=== PATIENT | female | born 1940 | race Caucasian/White ===

== ENCOUNTER 2017-03-03 13:09 | Observation (INO) | payer MEDICARE ==
[~2017-03-03 13:09] MED LIST: Warfarin 2.5 MG Tab PO SCH
[2017-03-03] MEDS ORDERED: Aspirin 81 MG Tab.Chew PO ONE (13:23)
[2017-03-03] MEDS ORDERED: Nitroglycerin 0.4 MG Tab.SL SL PRN ×2 (13:24→19:57)
--- NOTE | 2017-03-03 13:49 | CR ---
Portable chest Comparison: 14 October 2016. Findings: There is a cardiac pacemaker on the left. The leads are intact. There is stable cardiac en largement. The vascular structures are within normal limits. There are no infiltrates or effusions. Impression: 1. No acute findings.
--- NOTE | 2017-03-03 13:54 | EDM.PDOC ---
ED HPI GENERAL MEDICAL PROBLEM - General Chief Complaint: Chest Pain Stated Complaint: CHEST PAINS VIA [facility] Time Seen by Provider: 03/03/17 13:50 Source of Information: Reports: Patient History Limitations: Reports: No limitations - History of Present Illness INITIAL COMMENTS - FREE TEXT/NARRATIVE: Pt arrived with a history of chest pain which started about 10 am. This was quite severe a one point. She rated it a 7 on arrival. She did not get sweaty or did not vomit. She was not real sob. Onset: sudden Duration: Hour(s): Location: Reports: chest, other (pressure and at times ) Associated Symptoms: Reports: chest pain Chest Pain Score (Numeric/FACES): 5 - Related Data Allergies Allergy/AdvReac Type Severity Reaction Status Date / Time atorvastatin calcium Allergy Swelling Verified 03/03/17 13:24 [From Lipitor] oxycodone Allergy Itching Verified 03/03/17 13:24 duloxetine HCl AdvReac Depression Verified 03/03/17 13:24 [From Cymbalta] hydrocodone AdvReac Hallucinati Verified 03/03/17 13:24 ons lisinopril AdvReac Cough Verified 03/03/17 13:24 Home Meds: Home Meds Aspirin 81 mg PO DAILY 10/29/15 [History] Carbidopa/Levodopa [Carbidopa-Levodopa 25-100] 2 tab PO QID 10/29/15 [History] Carvedilol [Coreg] 12.5 mg PO BID 10/29/15 [History] Citalopram [Citalopram HBr] 20 mg PO DAILY 10/29/15 [History] Levothyroxine 125 mcg PO ACBREAKFAST 10/29/15 [History] Losartan [Cozaar] 25 mg PO DAILY 10/29/15 [History] Nitroglycerin [Nitrostat] 0.4 mg SL ASDIRECTED 10/29/15 [History] OXcarbazepine [Oxcarbazepine] 300 mg PO BID 10/29/15 [History] Omeprazole 20 mg PO DAILY 10/29/15 [History] Simvastatin 40 mg PO BEDTIME 10/29/15 [History] Venlafaxine HCl [Venlafaxine ER] 150 mg PO DAILY 10/29/15 [History] Warfarin [Coumadin] 2.5 mg PO SUTUWETHSA 10/29/15 [History] Warfarin [Coumadin] 5 mg PO MOFR 10/29/15 [History] ARIPiprazole [Abilify] 2 mg PO DAILY 05/18/16 [History] Celecoxib [CeleBREX] 200 mg PO DAILY PRN 05/18/16 [History] LORazepam 0.5 - 1 tab PO BEDTIME PRN 05/18/16 [History] Venlafaxine HCl [Venlafaxine ER] 37.5 mg PO DAILY 05/18/16 [History] Calcium Carbonate/Vitamin D3 [Calcium 500-Vit D3 200 Tablet] 1 tab PO BID [History] Cholecalciferol (Vitamin D3) [Vitamin D3] 1 tab PO DAILY 05/29/16 [History] Ferrous Sulfate 325 mg PO DAILY 05/29/16 [History] Furosemide 20 mg PO DAILY 05/29/16 [History] Potassium Chloride 10 meq PO DAILY 05/29/16 [History] Past Medical History HEENT History: Reports: Impaired vision, Sinusitis Cardiovascular History: Reports: Afib, CAD, Heart Failure, High cholesterol, Hypertension, [place], Pacemaker, SOB on exertion Respiratory History: Reports: Other (see below) Other Respiratory History: "fluid on the lungs" Gastrointestinal History: Reports: GERD [employer]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: 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, Fibroids, Musculoskeletal History: Reports: Osteoarthritis, Osteoporosis Neurological History: Reports: Headaches, chronic, Seizure Psychiatric History: Reports: Anxiety, Depression Endocrine/Metabolic History: Reports: Hypothyroidism, Other (see below) Other Endocrine/Metabolic History: Thyroid disease - Infectious Disease History Infectious Disease History: Reports: Chicken pox, Measles, Mumps - Past Surgical History HEENT Surgical History: Reports: Cataract surgery, Other (see below) Other HEENT Surgeries/Procedures: left ear mastoid surgery, sinus surgery Cardiovascular Surgical History: Reports: Pacer GI Surgical History: Reports: Appendectomy, Cholecystectomy Endocrine Surgical History: Reports: Other (see below) Other Endocrine Surgeries/Procedures: thyroid surgery Musculoskeletal Surgical History: Reports: Knee replacement, Shoulder replacement Social & Family History - Family History Family Medical History: Noncontributory Cardiac: Reports: CAD, Heart failure, [place] - Tobacco Use Smoking Status *Q: Never Smoker Second Hand Smoke Exposure: No - Caffeine Use Caffeine Use: Reports: Coffee - Recreational Drug Use Recreational Drug Use: No ED ROS GENERAL - Review of Systems Review Of Systems: See Below Constitutional: Reports: no symptoms HEENT: Reports: No symptoms Respiratory: Reports: Shortness of Breath Cardiovascular: Reports: Chest pain, Other (history of atrial fib. ) Endocrine: Reports: no symptoms GI/Abdominal: Reports: No symptoms : Reports: no symptoms ED EXAM, GENERAL - Physical Exam Exam: See Below Free Text/Narrative:: Pt arrived after having several hours of left sided chest pain. She had a stress test that was neg except her ejection fraction was only 20 %. She had asa in the ambulance and she was given one nitro and her pain went completely away. Exam Limited By: No limitations General Appearance: alert, anxious, mild distress Ears: normal TMs Nose: normal inspection Throat/Mouth: Normal inspection Head: atraumatic Neck: normal inspection Respiratory/Chest: no respiratory distress Cardiovascular: irregularly irregular, other ( Pt is in atrial fib and has a permanent pacemaker. ) GI/Abdominal: Soft, Non-Tender Rectal (Female) Exam: Deferred Back Exam: normal inspection Extremities: normal inspection Neurological: alert, oriented, normal cognition Psychiatric: normal affect Course - Vital Signs Last Recorded V/S: Last Vital Signs Temp 37.2 C 03/03/17 13:15 Pulse 70 03/03/17 14:15 Resp 15 03/03/17 14:15 BP 135/77 03/03/17 14:15 Pulse Ox 95 03/03/17 14:15 - Orders/Labs/Meds Orders: Active Orders 24 hr Category Date Time Status EKG Documentation Completion [RC] ASDIRECTED Care 03/03/17 13:23 Active UA W/MICROSCOPIC [URIN] Urgent Lab 03/03/17 13:22 Uncollected EKG 12 Lead [EK] Routine Ther 03/03/17 13:23 Ordered Labs: Laboratory Tests 03/03/17 03/03/17 03/03/17 Range/Units 13:24 13:33 13:33 WBC 7.7 (4.5-11.0) K/uL RBC 4.52 (3.30-5.50) M/uL Hgb 13.8 (12.0-15.0) g/dL Hct 41.6 (36.0-48.0) % MCV 92 (80-98) fL MCH 31 (27-31) pg MCHC 33 (32-36) % Plt Count 201 (150-400) K/uL Neut % (Auto) 63 (36-66) % Lymph % (Auto) 23 L (24-44) % [place] % (Auto) 14 H (2-6) % Eos % (Auto) 0 L (2-4) % Baso % (Auto) 0 (0-1) % PT 24.1 H (9.5-12.0) sec INR 2.22 H (0.80-1.20) Sodium (140-148) mmol/L Potassium (3.6-5.2) mmol/L Chloride (100-108) mmol/L Carbon Dioxide (21-32) mmol/L Anion Gap (5.0-14.0) mmol/L BUN (7-18) mg/dL Creatinine (0.6-1.0) mg/dL Est Cr Clr Drug Dosing mL/min Estimated GFR (MDRD) (>60) Glucose (74-106) mg/dL Calcium (8.5-10.1) mg/dL Total Bilirubin (0.2-1.0) mg/dL AST (15-37) U/L ALT (12-78) U/L Alkaline Phosphatase (46-116) U/L Creatine Kinase (26-192) U/L Troponin I < 0.017 (0.000-0.056) ng/mL Total Protein (6.4-8.2) g/dL Albumin (3.4-5.0) g/dL Globulin (2.3-3.5) g/dL Albumin/Globulin Ratio (1.2-2.2) 03/03/17 Range/Units 13:33 WBC (4.5-11.0) K/uL RBC (3.30-5.50) M/uL Hgb (12.0-15.0) g/dL Hct (36.0-48.0) % MCV (80-98) fL MCH (27-31) pg MCHC (32-36) % Plt Count (150-400) K/uL Neut % (Auto) (36-66) % Lymph % (Auto) (24-44) % [place] % (Auto) (2-6) % Eos % (Auto) (2-4) % Baso % (Auto) (0-1) % PT (9.5-12.0) sec INR (0.80-1.20) Sodium 134 L (140-148) mmol/L Potassium 4.4 (3.6-5.2) mmol/L Chloride 98 L (100-108) mmol/L Carbon Dioxide 29 (21-32) mmol/L Anion Gap 11.4 (5.0-14.0) mmol/L BUN 17 D (7-18) mg/dL Creatinine 0.8 (0.6-1.0) mg/dL Est Cr Clr Drug Dosing 57.75 mL/min Estimated GFR (MDRD) > 60 (>60) Glucose 98 (74-106) mg/dL Calcium 8.2 L (8.5-10.1) mg/dL Total Bilirubin 0.7 (0.2-1.0) mg/dL AST 17 (15-37) U/L ALT 9 L (12-78) U/L Alkaline Phosphatase 99 (46-116) U/L Creatine Kinase 39 (26-192) U/L Troponin I (0.000-0.056) ng/mL Total Protein 6.8 (6.4-8.2) g/dL Albumin 3.4 (3.4-5.0) g/dL Globulin 3.4 (2.3-3.5) g/dL Albumin/Globulin Ratio 1.0 L (1.2-2.2) Meds: Medications Discontinued Medications Generic Name Dose Route Start Last Admin Trade Name Freq PRN Reason Stop Dose Admin Aspirin 324 mg 03/03/17 13:23 Aspirin PO 03/03/17 13:24 ONETIME ONE Nitroglycerin 0.4 mg 03/03/17 13:24 03/03/17 13:51 Nitrostat SL 03/03/17 13:35 0.4 mg Q5M PRN Administration Chest Pain - Re-Assessments/Exams Free Text/Narrative Re-Assessment/Exam: 03/03/17 14:51 pt had a normal ekg and she had a unchanged chest xray. She had normal cardiac enzymes. She did get relief with a nitro and became pain free. Departure - Departure Time of Disposition: 14:52 Disposition: Admitted As Inpatient 68 Condition: fair Clinical Impression: Angina at rest, Decreased cardiac ejection fraction Forms: ED Department Discharge Care Plan Goals: admit to Dr bailey - My Orders Last 24 Hours: My Active Orders 03/03/17 13:22 UA W/MICROSCOPIC [URIN] Urgent 03/03/17 13:23 EKG Documentation Completion [RC] ASDIRECTED EKG 12 Lead [EK] Routine - Assessment/Plan Last 24 Hours: My Active Orders 03/03/17 13:22 UA W/MICROSCOPIC [URIN] Urgent 03/03/17 13:23 EKG Documentation Completion [RC] ASDIRECTED EKG 12 Lead [EK] Routine
--- NOTE | 2017-03-03 15:28 | PCM.HP ---
H&P History of Present Illness - General Date of Service: 03/03/17 Admit Problem/Dx: Admission Diagnosis/Problem Admission Diagnosis/Problem Atypical chest pain Source of Information: Patient, Family, Provider History Limitations: Reports: No limitations - History of Present Illness Initial Comments - Free Text/Narative: Kimberley presents to the emergency room today with chest pain. She reports the onset of initially a "poke" like pain right in the center of her chest. This progressed over several minutes to a pressure-like pain which she described as a brick sitting on her chest. This pain started out mild and then progressed to moderately severe over the course of a couple of hours. The pain started while she was at rest. She did not notice a change in the pain when she was up and moving around. She didn't take anything at home to make the pain better. The pain did eventually radiate slightly to the left side of her chest and maybe up into her shoulder. She had some associated nausea but did not feel short of breath or diaphoretic. She has had similar pains in the past though it 's been quite a while since she's had a pain this intense. She has had a mild cough without sputum. No fevers or chills. No recent difficulties with diarrhea or heartburn. No obvious sick contacts. Workup in the emergency room has been reassuring with a normal troponin and stable EKG. She is pain-free at this time. Vital signs have all been stable. She will be admitted for observation. Chest Pain Score (Numeric/FACES): 5 - Related Data Allergies/Adverse Reactions: Allergies Allergy/AdvReac Type Severity Reaction Status Date / Time atorvastatin calcium Allergy Swelling Verified 03/03/17 13:24 [From Lipitor] oxycodone Allergy Itching Verified 03/03/17 13:24 duloxetine HCl AdvReac Depression Verified 03/03/17 13:24 [From Cymbalta] hydrocodone AdvReac Hallucinati Verified 03/03/17 13:24 ons lisinopril AdvReac Cough Verified 03/03/17 13:24 Home Medications: Home Meds Aspirin 81 mg PO DAILY 10/29/15 [History] Carbidopa/Levodopa [Carbidopa-Levodopa 25-100] 2 tab PO QID 10/29/15 [History] Carvedilol [Coreg] 12.5 mg PO BID 10/29/15 [History] Citalopram [Citalopram HBr] 20 mg PO DAILY 10/29/15 [History] Levothyroxine 125 mcg PO ACBREAKFAST 10/29/15 [History] Losartan [Cozaar] 25 mg PO DAILY 10/29/15 [History] Nitroglycerin [Nitrostat] 0.4 mg SL ASDIRECTED 10/29/15 [History] OXcarbazepine [Oxcarbazepine] 300 mg PO BID 10/29/15 [History] Omeprazole 20 mg PO DAILY 10/29/15 [History] Simvastatin 40 mg PO BEDTIME 10/29/15 [History] Venlafaxine HCl [Venlafaxine ER] 150 mg PO DAILY 10/29/15 [History] Warfarin [Coumadin] 2.5 mg PO ASDIRECTED 10/29/15 [History] Warfarin [Coumadin] 5 mg PO MOFR 10/29/15 [History] ARIPiprazole [Abilify] 5 mg PO DAILY 05/18/16 [History] Celecoxib [CeleBREX] 200 mg PO DAILY PRN 05/18/16 [History] LORazepam 0.5 - 1 tab PO BEDTIME PRN 05/18/16 [History] Venlafaxine HCl [Venlafaxine ER] 37.5 mg PO DAILY 05/18/16 [History] Calcium Carbonate/Vitamin D3 [Calcium 500-Vit D3 200 Tablet] 1 tab PO BID [History] Cholecalciferol (Vitamin D3) [Vitamin D3] 1 tab PO DAILY 05/29/16 [History] Ferrous Sulfate 325 mg PO DAILY 05/29/16 [History] Furosemide 20 mg PO DAILY 05/29/16 [History] Potassium Chloride 10 meq PO DAILY 05/29/16 [History] ALPRAZolam [Xanax] 0.25 mg PO ASDIRECTED PRN 03/03/17 [History] Ofloxacin [Floxin 0.3% Otic Soln] 10 drop EARLF ASDIRECTED 03/03/17 [History] Past Medical History HEENT History: Reports: Impaired vision, Sinusitis Cardiovascular History: Reports: Afib, CAD, Heart Failure, High cholesterol, Hypertension, [place], Pacemaker, SOB on exertion Respiratory History: Reports: Other (see below) Other Respiratory History: "fluid on the lungs" Gastrointestinal History: Reports: GERD 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: 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, 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, Musculoskeletal History: Reports: Osteoarthritis, Osteoporosis Neurological History: Reports: Headaches, chronic, Seizure Psychiatric History: Reports: Anxiety, Depression Endocrine/Metabolic History: Reports: Hypothyroidism, Other (see below) Other Endocrine/Metabolic History: Thyroid disease - Infectious Disease History Infectious Disease History: Reports: Chicken pox, Measles, Mumps - Past Surgical History HEENT Surgical History: Reports: Cataract surgery, Other (see below) Other HEENT Surgeries/Procedures: left ear mastoid surgery, sinus surgery Cardiovascular Surgical History: Reports: Pacer GI Surgical History: Reports: Appendectomy, Cholecystectomy Endocrine Surgical History: Reports: Other (see below) Other Endocrine Surgeries/Procedures: thyroid surgery Musculoskeletal Surgical History: Reports: Knee replacement, Shoulder replacement Social & Family History - Family History Family Medical History: Noncontributory Cardiac: Reports: CAD, Heart failure, [place] - Tobacco Use Smoking Status *Q: Never Smoker Second Hand Smoke Exposure: No - Caffeine Use Caffeine Use: Reports: Coffee - Alcohol Use Alcohol Use History: No - Recreational Drug Use Recreational Drug Use: No H&P Review of Systems - Review of Systems: Review Of Systems: See Below Free Text/Narrative: A complete 12 point review of systems was obtained. Pertinent positives and negatives are noted in the history of present illness. All other systems were reviewed and were negative except as noted. Exam - Exam Exam: See Below - Vital Signs Vital Signs: Last Vital Signs Temp 37.2 C 03/03/17 13:15 Pulse 70 03/03/17 14:49 Resp 16 03/03/17 14:49 BP 120/80 03/03/17 14:49 Pulse Ox 95 03/03/17 14:49 Weight: 97.522 kg - Exam Quality Assessment: supplemental oxygen. No: urinary catheter General: alert, oriented, cooperative. No: mild distress HEENT: Mucosa moist & pink. No: Scleral icterus Neck: supple, trachea midline Lungs: Clear to auscultation, Normal respiratory effort Cardiovascular: regular rate, regular rhythm. No: systolic murmur Abdomen: Normal Bowel Sounds, Soft. No: Distention, Tenderness Back Exam: normal inspection, full range of motion Extremities: normal inspection, normal pulses. No: edema Peripheral Pulses: 2+: dorsalis pedis (L), dorsalis pedis (R) Skin: warm, dry, intact Neuro Extensive - Mental Status: alert, oriented x3, nl response to commands Neuro Extensive - Motor, Sensory, Reflexes: CN II-XII intact. No: dysarthria, abnormal motor, tremor Psychiatric: alert, normal affect - Patient Data Lab Results last 24 hrs: Laboratory Results - last 24 hr 03/03/17 03/03/17 03/03/17 Range/Units 13:24 13:33 13:33 WBC 7.7 (4.5-11.0) K/uL RBC 4.52 (3.30-5.50) M/uL Hgb 13.8 (12.0-15.0) g/dL Hct 41.6 (36.0-48.0) % MCV 92 (80-98) fL MCH 31 (27-31) pg MCHC 33 (32-36) % Plt Count 201 (150-400) K/uL Neut % (Auto) 63 (36-66) % Lymph % (Auto) 23 L (24-44) % [place] % (Auto) 14 H (2-6) % Eos % (Auto) 0 L (2-4) % Baso % (Auto) 0 (0-1) % PT 24.1 H (9.5-12.0) sec INR 2.22 H (0.80-1.20) Sodium (140-148) mmol/L Potassium (3.6-5.2) mmol/L Chloride (100-108) mmol/L Carbon Dioxide (21-32) mmol/L Anion Gap (5.0-14.0) mmol/L BUN (7-18) mg/dL Creatinine (0.6-1.0) mg/dL Est Cr Clr Drug Dosing mL/min Estimated GFR (MDRD) (>60) Glucose (74-106) mg/dL Calcium (8.5-10.1) mg/dL Total Bilirubin (0.2-1.0) mg/dL AST (15-37) U/L ALT (12-78) U/L Alkaline Phosphatase (46-116) U/L Creatine Kinase (26-192) U/L Troponin I < 0.017 (0.000-0.056) ng/mL Total Protein (6.4-8.2) g/dL Albumin (3.4-5.0) g/dL Globulin (2.3-3.5) g/dL Albumin/Globulin Ratio (1.2-2.2) Urine Color Urine Appearance Urine pH (4.5-8.0) Ur Specific [place] (1.008-1.030) Urine Protein (NEGATIVE) mg/dL Urine Glucose (UA) (NEGATIVE) mg/dL Urine Ketones (NEGATIVE) mg/dL Urine Occult Blood (NEGATIVE) Urine Nitrite (NEGATIVE) Urine Bilirubin (NEGATIVE) Urine Urobilinogen (NORMAL) mg/dL Ur Leukocyte Esterase (NEGATIVE) Urine RBC (0-5) Urine WBC (0-5) Ur Epithelial Cells Amorphous Sediment Urine Bacteria Urine Mucus 03/03/17 03/03/17 Range/Units 13:33 15:01 WBC (4.5-11.0) K/uL RBC (3.30-5.50) M/uL Hgb (12.0-15.0) g/dL Hct (36.0-48.0) % MCV (80-98) fL MCH (27-31) pg MCHC (32-36) % Plt Count (150-400) K/uL Neut % (Auto) (36-66) % Lymph % (Auto) (24-44) % [place] % (Auto) (2-6) % Eos % (Auto) (2-4) % Baso % (Auto) (0-1) % PT (9.5-12.0) sec INR (0.80-1.20) Sodium 134 L (140-148) mmol/L Potassium 4.4 (3.6-5.2) mmol/L Chloride 98 L (100-108) mmol/L Carbon Dioxide 29 (21-32) mmol/L Anion Gap 11.4 (5.0-14.0) mmol/L BUN 17 D (7-18) mg/dL Creatinine 0.8 (0.6-1.0) mg/dL Est Cr Clr Drug Dosing 57.75 mL/min Estimated GFR (MDRD) > 60 (>60) Glucose 98 (74-106) mg/dL Calcium 8.2 L (8.5-10.1) mg/dL Total Bilirubin 0.7 (0.2-1.0) mg/dL AST 17 (15-37) U/L ALT 9 L (12-78) U/L Alkaline Phosphatase 99 (46-116) U/L Creatine Kinase 39 (26-192) U/L Troponin I (0.000-0.056) ng/mL Total Protein 6.8 (6.4-8.2) g/dL Albumin 3.4 (3.4-5.0) g/dL Globulin 3.4 (2.3-3.5) g/dL Albumin/Globulin Ratio 1.0 L (1.2-2.2) Urine Color Yellow Urine Appearance Clear Urine pH 7.0 (4.5-8.0) Ur Specific [place] 1.015 (1.008-1.030) Urine Protein Negative (NEGATIVE) mg/dL Urine Glucose (UA) Normal (NEGATIVE) mg/dL Urine Ketones Negative (NEGATIVE) mg/dL Urine Occult Blood Negative (NEGATIVE) Urine Nitrite Negative (NEGATIVE) Urine Bilirubin Negative (NEGATIVE) Urine Urobilinogen Normal (NORMAL) mg/dL Ur Leukocyte Esterase Negative (NEGATIVE) Urine RBC 0-5 (0-5) Urine WBC 0-5 (0-5) Ur Epithelial Cells Rare Amorphous Sediment Not seen Urine Bacteria Not seen Urine Mucus Not seen Result Diagrams: 03/03/17 13:33 03/03/17 13:33 Imaging Impressions last 24 hrs: cXR - images personally reviewed - there is no mass, chf, infiltrate. she has a pacer with intact leads EKG INTERPRETATION EKG Date: 03/03/17 Rhythm: other (paced) Rate (beats/min): 70 [place]: LAD-left axis deviation P-wave: variable QRS: wide ST-T: normal QT: normal *Q Meaningful Use (ADM) - VTE *Q VTE Criteria *Q: - Stroke *Q Stroke Criteria *Q: - AMI *Q AMI Criteria *Q: - Problem List (1) Atypical chest pain SNOMED Code(s): 179858439 ICD Code: R07.89 - OTHER CHEST PAIN Status: Acute Current Visit: Yes (2) Ischemic cardiomyopathy SNOMED Code(s): 837147623 ICD Code: I25.5 - ISCHEMIC CARDIOMYOPATHY Status: Chronic Current Visit: No (3) Chronic atrial fibrillation SNOMED Code(s): 113089847 ICD Code: I48.2 - CHRONIC ATRIAL FIBRILLATION Status: Chronic Current Visit: No Problem List Initiated/Reviewed/Updated: Yes Orders Last 24hrs: Active Orders 24 hr Category Date Time Status Patient Status Manage Transfer [TRANSFER] Routine ADT 03/03/17 15:18 Ordered EKG Documentation Completion [RC] ASDIRECTED Care 03/03/17 13:23 Active Resuscitation Status Routine Resus Stat 03/03/17 15:21 Ordered EKG 12 Lead [EK] Routine Ther 03/03/17 13:23 Ordered Assessment/Plan Comment:: Assessment and plan - Atypical chest pain - fairly severe pain but reassuring workup. She is now pain -free. She does have a history of a cardiomyopathy thought to be ischemic but she's never had a coronary angiogram. Significant risk factors for heart disease. Most recent stress test did not show large areas of ischemia but did suggest some distal disease. She does report some shortness of breath with activity over recent months. -Serial troponins -Cardiac monitoring -Continue medical management for coronary artery disease -Stress test in the morning Chronic atrial fibrillation - status post pacemaker placement. Chronically anticoagulated. Currently rate controlled. -Continue rate control and anticoagulation Hypothyroidism, acquired - no symptoms to suggest hyper or hypothyroid state. -Continue supplement Maintenance issues - - DVT prophylaxis - warfarin - GI prophylaxis - PPI - Nutrition - heart healthy diet - [place] catheter - not indicated CODE STATUS - full code Admission justification - This patient will be admitted for inpatient services and is medically appropriate meeting medical necessity for inpatient admission as outlined in my documentation. I reasonably expect the patient will require inpatient services that span a period time over 2 midnights. I reasonably expect this patient to be discharged or transferred within 96 hours [facility] Disposition - anticipate discharge home tomorrow Primary care physician - Dr Doug Santana M.D.
[2017-03-03] MEDS ORDERED: Acetaminophen 325 MG Tab PO PRN (16:31)
[2017-03-03] MEDS ORDERED: Morphine 2 MG/ML Syringe IVPUSH PRN (16:31)
[2017-03-03] MEDS ORDERED: Polyethylene Glycol 3350 Powder 17 GM Packet PO PRN (16:31)
[2017-03-03] MEDS ORDERED: Ondansetron 4 MG/2 ML SDV IV PRN (16:31)
[2017-03-03] MEDS ORDERED: Ondansetron 4 MG Tab.DIS PO PRN (16:31)
[2017-03-03] MEDS ORDERED: ALPRAZolam 0.25 MG Tab PO PRN (19:48)
[2017-03-03] MEDS ORDERED: LORazepam 0.5 MG Tab PO PRN (20:00)
[2017-03-03] MEDS ORDERED: CELECOXIB 200 MG PO PRN (21:00)
[2017-03-03] MEDS: Carvedilol 12.5 MG Tab **OWN MED PO SCH (21:16)
[2017-03-03] MEDS: OXCARBAZEPINE 300 MG PO SCH (21:17)
[2017-03-03] MEDS: Carbidopa/Levodopa 25-100 MG Tab **OWN MED PO SCH (21:17)
[2017-03-04] MEDS: Carbidopa/Levodopa 25-100 MG Tab **OWN MED PO SCH ×2 (06:30→12:50)
[2017-03-04] MEDS ORDERED: Pantoprazole 40 MG Tab.CR PO SCH (07:30)
[2017-03-04] MEDS ORDERED: Levothyroxine 75 MCG Tab PO SCH (07:30)
[2017-03-04] MEDS ORDERED: Levothyroxine 50 MCG Tab PO SCH (07:30)
[2017-03-04] MEDS ORDERED: Venlafaxine 75 MG Cap.ER PO SCH (09:00)
[2017-03-04] MEDS ORDERED: VENLAFAXINE 37.5 MG PO SCH (09:00)
[2017-03-04] MEDS ORDERED: Aspirin 81 MG Tab.Chew **OWN MED PO SCH (09:00)
[2017-03-04] MEDS ORDERED: Losartan 50 MG Tab PO SCH (09:00)
[2017-03-04] MEDS ORDERED: ARIPiprazole 10 MG Tab PO SCH (09:00)
[2017-03-04] MEDS ORDERED: Furosemide 20 MG Tab **OWN MED PO SCH (09:00)
[2017-03-04] MEDS ORDERED: Citalopram 20 MG Tab **OWN MED PO SCH (09:00)
[2017-03-04] MEDS ORDERED: POTASSIUM CHLORIDE 10 MEQ PO SCH (09:00)
[2017-03-04] MEDS ORDERED: Aminophylline 250 MG/10 ML SDV IVPUSH PRN (10:30)
[2017-03-04 11:29] VITALS: BP 156/71
[2017-03-04] MEDS ORDERED: LEVOTHYROXINE 125 MCG PO SCH (12:00)
[2017-03-04] MEDS ORDERED: ARIPIPRAZOLE 5 MG PO SCH (12:00)
[2017-03-04] MEDS: OXCARBAZEPINE 300 MG PO SCH (12:46)
[2017-03-04] MEDS: Carvedilol 12.5 MG Tab **OWN MED PO SCH (12:47)
[2017-03-04] MEDS ORDERED: WARFARIN 2.5 MG PO SCH (13:00)
--- NOTE | 2017-03-04 13:24 | NM ---
Nuclear medicine cardiac Lexiscan stress test. History: Chest pain Technique: The patient was stressed pharmacologically with the administration of Lexiscan. The patie nt received intravenously 10.7 millicuries of technetium 99 Myoview followed by rest imaging and 29 .8 millicuries followed by stress imaging. Comparison: May 2016. Findings: There is a fixed defect involving the lateral distal myocardium adjacent to the cardiac ap ex. The size of the defect is decreased from the prior study. There is partial redistribution at res t. The finding is consistent with a focal area of infarction with mild kristine-infarct ischemia. There is global hypokinesis. The cardiac ejection fraction is within normal limits equal to 63%. Impression: 1. 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 There is mild kristine-in farct ischemia. 2. Hypokinesis with dilatation of the left ventricle. 3. Normal ejection fraction.
--- NOTE | 2017-03-04 14:17 | PCM.DCSUM1 ---
Discharge Summary - Hospital Course Brief History: 76-year-old female with history of coronary artery disease and ischemic cardiomyopathy who presented with atypical chest pain and was admitted for observation - Discharge Data Discharge Date: 03/04/17 Discharge Disposition: Home, Self-Care 01 Condition: Good - Discharge Diagnosis/Problem(s) (1) Atypical chest pain SNOMED Code(s): 090934235 ICD Code: R07.89 - OTHER CHEST PAIN Status: Acute Current Visit: Yes (2) Ischemic cardiomyopathy SNOMED Code(s): 151029774 ICD Code: I25.5 - ISCHEMIC CARDIOMYOPATHY Status: Chronic Current Visit: No (3) Chronic atrial fibrillation SNOMED Code(s): 651682351 ICD Code: I48.2 - CHRONIC ATRIAL FIBRILLATION Status: Chronic Current Visit: No - Patient Summary/Data Hospital Course: Kimberley presented to the emergency room with an episode of atypical chest pain. Workup in the emergency room was reassuring but she was admitted for observation given the severity of her pain. Overnight there were no abnormalities with telemetry and serial troponin levels were normal. She did have one very mild episode of chest tightness shortly after arrival to the intensive care unit but has not had recurrence since that time. The morning after admission she feels well. Her vital signs have all been stable. Her cholesterol numbers are excellent with an LDL less than 70 and HDL of nearly 90. We did complete a Lexiscan stress test and were able to compare this to one from approximately 18 months ago. 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 Comparing this to images from her previous stress test the area of ischemia has actually shrunk in size. Her ejection fraction which previously had been approximately 30% is now greater than 60. She does have mild global hypokinesis noted. We discussed potential management options at this time. We reviewed the potential benefits of adding a long acting nitrate versus more of a cardiac rehabilitation type approach with patient trying to increase the speed the duration of her walking. At this time she feels like she takes no pills in is not interested in another medication at this time. She would like to improve her endurance with the hope that this will keep her from needing an additional medication. If she has persistent difficulties with dyspnea on exertion or recurrent episodes of chest pain we could consider adding a low dose of isosorbide. She will be discharged to home with her . I did review the findings above with her and her son prior to discharge. All of her questions were answered. - Patient Instructions Diet: Heart Healthy Diet Activity: As Tolerated Driving: May Drive Today Showering/Bathing: May Shower Notify Provider of: Fever, Increased Pain, Nausea and/or Vomiting Other/Special Instructions: 1. You were in the hospital for observation and further evaluation after an episode of atypical chest pain. There is no evidence that you had a heart attack. The stress test that we completed the morning after admission did show that you have had a heart attack in the past but the area of damage and has actually shrunk since your stress test 1-1/2 years ago. I would recommend that we manage this medically. You should continue your current medications. I would encourage you to increase your aerobic exercise such as walking with the idea that you will strengthen your heart and improve your endurance. 2. If you have difficulty with persistent shortness of breath during exercise or recurrent episodes of chest pain we could consider adding a medication called isosorbide mononitrate (Imdur). This is a long acting nitrate I can improve the blood flow to your coronary arteries. 3. Please seek medical attention if you develop sudden onset of shortness of breath or have return of your severe chest pain. - Discharge Plan Home Medications: Home Meds Aspirin 81 mg PO DAILY 10/29/15 [History] Carbidopa/Levodopa [Carbidopa-Levodopa 25-100] 2 tab PO QID 10/29/15 [History] Carvedilol [Coreg] 12.5 mg PO BID 10/29/15 [History] Citalopram [Citalopram HBr] 20 mg PO DAILY 10/29/15 [History] Levothyroxine 125 mcg PO ACBREAKFAST 10/29/15 [History] Losartan [Cozaar] 25 mg PO DAILY 10/29/15 [History] Nitroglycerin [Nitrostat] 0.4 mg SL ASDIRECTED 10/29/15 [History] OXcarbazepine [Oxcarbazepine] 300 mg PO BID 10/29/15 [History] Omeprazole 20 mg PO DAILY 10/29/15 [History] Simvastatin 40 mg PO BEDTIME 10/29/15 [History] Venlafaxine HCl [Venlafaxine ER] 150 mg PO DAILY 10/29/15 [History] Warfarin [Coumadin] 2.5 mg PO ASDIRECTED 10/29/15 [History] Warfarin [Coumadin] 5 mg PO MOFR 10/29/15 [History] ARIPiprazole [Abilify] 5 mg PO DAILY 05/18/16 [History] Celecoxib [CeleBREX] 200 mg PO DAILY PRN 05/18/16 [History] LORazepam 0.5 - 1 tab PO BEDTIME PRN 05/18/16 [History] Venlafaxine HCl [Venlafaxine ER] 37.5 mg PO DAILY 05/18/16 [History] Calcium Carbonate/Vitamin D3 [Calcium 500-Vit D3 200 Tablet] 1 tab PO BID [History] Cholecalciferol (Vitamin D3) [Vitamin D3] 1 tab PO DAILY 05/29/16 [History] Ferrous Sulfate 325 mg PO DAILY 05/29/16 [History] Furosemide 20 mg PO DAILY 05/29/16 [History] Potassium Chloride 10 meq PO DAILY 05/29/16 [History] ALPRAZolam [Xanax] 0.25 mg PO ASDIRECTED PRN 03/03/17 [History] Ofloxacin [Floxin 0.3% Otic Soln] 10 drop EARLF ASDIRECTED 03/03/17 [History] Patient Handouts: Nonspecific Chest Pain Referrals: Dimitris Camacho MD [Physician] - (follow up as needed if your symptoms return ) - Discharge Summary/Plan Comment DC Time >30 min.: No (25) - Patient Data Vitals - Most Recent: Last Vital Signs Temp 36.3 C 03/04/17 11:28 Pulse 70 03/04/17 11:28 Resp 18 03/04/17 11:28 BP 156/71 H 03/04/17 11:28 Pulse Ox 97 03/04/17 11:28 Weight - Most Recent: 97.522 kg I&O - Last 24 hours: Intake & Output 03/03/17 03/04/17 03/04/17 22:59 06:59 14:59 Intake Total 240 60 Output Total 150 400 Balance 240 -90 -400 Lab Results - Last 24 hrs: Laboratory Results - last 24 hr 03/03/17 03/04/17 03/04/17 Range/Units 17:55 00:00 05:56 PT 25.1 H (9.5-12.0) sec INR 2.31 H (0.80-1.20) Sodium (140-148) mmol/L Potassium (3.6-5.2) mmol/L Chloride (100-108) mmol/L Carbon Dioxide (21-32) mmol/L Anion Gap (5.0-14.0) mmol/L BUN (7-18) mg/dL Creatinine (0.6-1.0) mg/dL Est Cr Clr Drug Dosing mL/min Estimated GFR (MDRD) (>60) Glucose (74-106) mg/dL Calcium (8.5-10.1) mg/dL Troponin I < 0.017 < 0.017 (0.000-0.056) ng/mL Triglycerides (15-150) mg/dL Cholesterol (0-200) mg/dL LDL Cholesterol Direct (0-100) mg/dL HDL Cholesterol (40-60) mg/dL 03/04/17 Range/Units 05:56 PT (9.5-12.0) sec INR (0.80-1.20) Sodium 135 L (140-148) mmol/L Potassium 4.6 (3.6-5.2) mmol/L Chloride 101 (100-108) mmol/L Carbon Dioxide 29 (21-32) mmol/L Anion Gap 9.6 (5.0-14.0) mmol/L BUN 20 H (7-18) mg/dL Creatinine 0.9 (0.6-1.0) mg/dL Est Cr Clr Drug Dosing 51.62 mL/min Estimated GFR (MDRD) > 60 (>60) Glucose 94 (74-106) mg/dL Calcium 8.1 L (8.5-10.1) mg/dL Troponin I (0.000-0.056) ng/mL Triglycerides 41 (15-150) mg/dL Cholesterol 153 (0-200) mg/dL LDL Cholesterol Direct 63 (0-100) mg/dL HDL Cholesterol 87 H (40-60) mg/dL Med Orders - Current: Current Medications Acetaminophen (Tylenol) 650 mg PO Q4H PRN PRN Reason: Pain (Mild 1-3)/fever Alprazolam (Xanax) 0.25 mg PO ASDIRECTED PRN PRN Reason: Anxiety Aminophylline (Aminophylline) 125 mg IVPUSH ASDIRECTED PRN PRN Reason: Chest Pain Stop: 03/04/17 23:00 Last Admin: 03/04/17 10:54 Dose: 125 mg Aspirin (Aspirin) 81 mg PO DAILY [facility] Carbidopa/Levodopa (Sinemet 25-100 Mg) 2 tab PO QID [facility] Last Admin: 03/04/17 12:50 Dose: 2 tab Carvedilol (Coreg) 12.5 mg PO BID [facility] Last Admin: 03/04/17 12:47 Dose: 12.5 mg Celecoxib (Celebrex) 200 mg PO DAILY PRN PRN Reason: PAIN Last Admin: 03/04/17 12:50 Dose: 200 mg Citalopram Hydrobromide (Celexa) 20 mg PO DAILY [facility] Last Admin: 03/04/17 12:52 Dose: 20 mg Furosemide (Lasix) 20 mg PO DAILY [facility] Lorazepam (Ativan) 0.5 - 1 mg PO BEDTIME PRN PRN Reason: SLEEP Last Admin: 03/03/17 21:18 Dose: 1 mg Losartan Potassium (Cozaar) 0 mg PO DAILY [facility] Morphine Sulfate (Morphine) 2 mg IVPUSH Q2H PRN PRN Reason: Pain (severe 7-10) Simvastatin 40 Mg (Tab Own Med) 0 mg PO BEDTIME [facility] Last Admin: 03/03/17 21:17 Dose: 40 mg Ondansetron HCl (Zofran Odt) 4 mg PO Q6H PRN PRN Reason: Nausea able to take PO Ondansetron HCl (Zofran) 4 mg IV Q6H PRN PRN Reason: Nausea/Vomiting Oxcarbazepine (Trileptal) 300 mg PO BID [facility] Last Admin: 03/04/17 12:46 Dose: 300 mg Aripiprazole 5mg Mg (TabPom) 0 each PO DAILY [facility] Last Admin: 03/04/17 12:51 Dose: 1 each Levothyroxine 125 (Mcg TabPom) 0 each PO ACBREAKFAST [facility] Levothyroxine 125 (Mcg TabPom) 0 each PO ACBREAKFAST [facility] Last Admin: 03/04/17 12:49 Dose: 1 each Omeprazole 20mg (CapsulePom) 0 each PO ACBREAKFAST [facility] Venlafaxine 150 Mg (Cap.ErPom) 0 each PO DAILY [facility] Polyethylene Glycol (Miralax) 17 gm PO DAILY PRN PRN Reason: Constipation Potassium Chloride (Potassium Chloride) 10 meq PO DAILY [facility] Last Admin: 03/04/17 12:46 Dose: 10 meq Venlafaxine HCl (Effexor Xr) 37.5 mg PO DAILY [facility] Last Admin: 03/04/17 12:44 Dose: 37.5 mg Warfarin Sodium (Coumadin) 2.5 mg PO SuTuWeThSa [facility] Discontinued Medications Aripiprazole (Abilify) 5 mg PO DAILY [facility] Aspirin (Aspirin) 324 mg PO ONETIME ONE Stop: 03/03/17 13:24 Losartan Potassium (Cozaar) 25 mg PO DAILY [facility] Nitroglycerin (Nitrostat) 0.4 mg SL Q5M PRN PRN Reason: Chest Pain Stop: 03/03/17 13:35 Last Admin: 03/03/17 13:51 Dose: 0.4 mg Nitroglycerin (Nitrostat) 0.4 mg SL Q5M PRN PRN Reason: Chest Pain Stop: 03/03/17 20:08 Last Admin: 03/03/17 20:00 Dose: 0.4 mg Pantoprazole Sodium (Protonix) 40 mg PO ACBREAKFAST [facility] Levothyroxine 125 (Mcg TabPom) 0 each PO ACBREAKFAST [facility] Regadenoson (Lexiscan) 0.4 mg IVPUSH ONETIME ONE Stop: 03/04/17 10:46 Last Admin: 03/04/17 10:41 Dose: 0.4 mg Venlafaxine HCl (Effexor Xr) 150 mg PO DAILY [facility] Warfarin Sodium (Coumadin) 2.5 mg PO SuTuWeThSa [facility] *Q Meaningful Use (DIS) - VTE *Q VTE Criteria *Q: - Stroke *Q Stroke Criteria *Q: - AMI *Q AMI Criteria *Q:
--- NOTE | 2017-03-05 02:38 | STRESS ---
DATE OF SERVICE: 03/04/2017 PROPOSED PROCEDURE: Lexiscan stress test. INDICATION FOR STRESS TEST: Chest pain. REFERRING PHYSICIAN: Dr. Tato Santana. DESCRIPTION OF PROCEDURE: Kimberley presents to the child care specialist unit from the intensive care unit for a Lexiscan stress test. Preprocedure, her blood pressure is 151/83 and her pulse is 73. Baseline EKG shows a wide-complex paced rhythm with a left axis deviation and atrial fibrillation for an underlying rhythm. Review of the continuous EKG monitoring following injection of the Lexiscan per protocol did not reveal any significant changes in the ST segments or T-waves. Her blood pressure dipped slightly after injection of Lexiscan with the lowest blood pressure being 118/64 at the 7 minute tatyana of recovery. Heart rate remained essentially stable during the stress test. Postprocedure, her EKG is at baseline. Her blood pressure is 123/65 and her pulse is 69. Review of the hydrology technician's notes suggest that she was short of breath starting shortly after injection of Lexiscan and this persisted through the recovery phase. She did receive some oxygen during the 1st 5 minutes of the recovery phase. She also developed a mild headache and some left-sided chest pain during the recovery phase. She was given 125 mg of IV aminophylline 5 minutes into recovery. This caused the symptoms to resolve very quickly. IMPRESSION: Negative EKG portion of the stress test. Patient did report chest pain in the recovery phase and did feel short of breath after Lexiscan injection. The nuclear medicine portion will be interpreted separately for additional clinical correlation. Tato Santana MD /[id number]
[2017-03-05] MEDS ORDERED: LEVOTHYROXINE 125 MCG PO SCH ×2 (07:30)
[2017-03-05] MEDS ORDERED: OMEPRAZOLE 20 MG PO SCH (07:30)
[2017-03-05] MEDS ORDERED: Losartan 50 MG Tab**POM PO SCH (09:00)
[2017-03-05] MEDS ORDERED: VENLAFAXINE 150 MG PO SCH (09:00)
== END 2017-03-04 15:00 | disposition home or self-care (01) ==
LOC: JP.ED 13:09 → JP.ICU 15:18
PROVIDERS: ADMIT Internal Medicine; ATTEND Internal Medicine
DX: I48.2 Chronic atrial fibrillation (principal); I25.10 Atherosclerotic heart disease of native coronary artery without angina pectoris; I25.5 Ischemic cardiomyopathy; I25.2 Old myocardial infarction; I11.0 Hypertensive heart disease with heart failure; I50.9 Heart failure, unspecified; K21.9 Gastro-esophageal reflux disease without esophagitis; M81.0 Age-related osteoporosis without current pathological fracture; E03.9 Hypothyroidism, unspecified; M19.90 Unspecified osteoarthritis, unspecified site; F41.9 Anxiety disorder, unspecified; F32.9 Major depressive disorder, single episode, unspecified; R07.89 Other chest pain; Z79.82 Long term (current) use of aspirin; Z79.01 Long term (current) use of anticoagulants; Z79.899 Other long term (current) drug therapy; E78.00 Pure hypercholesterolemia, unspecified; Z95.0 Presence of cardiac pacemaker; Z98.49 Cataract extraction status, unspecified eye; Z90.49 Acquired absence of other specified parts of digestive tract; Z98.890 Other specified postprocedural states
CPT/HCPCS: 36415; 71010; 78452; 80048; 80053; 80061; 81001; 82550; 84484; 85025; 85610; 93005; 93017; 93018; 96374; 99284; 99285; A9270; A9500; G0378; J2785; 93010; 99217; 99219

== ENCOUNTER 2017-06-09 12:12 | Emergency (ER) | payer MEDICARE | END 2017-06-09 13:19 | disposition left against medical advice (07) | LOC: JP.ED 12:12 | DX: Z53.21 Procedure and treatment not carried out due to patient leaving prior to being seen by health care provider (principal) ==

== ENCOUNTER 2017-09-04 14:07 | Emergency (ER) | payer MEDICARE ==
[2017-09-04] MEDS ORDERED: Aspirin 81 MG Tab.Chew PO ONE (14:15)
[2017-09-04] MEDS ORDERED: LORazepam 1 MG Tab PO ONE (14:15)
[2017-09-04 15:02] VITALS: BP 132/77
[2017-09-04] MEDS ORDERED: Furosemide 40 MG Tab PO ONE (15:24)
--- NOTE | 2017-09-04 15:27 | EDM.PDOC ---
ED HPI GENERAL MEDICAL PROBLEM - General Chief Complaint: Chest Pain Stated Complaint: CHEST PAIN Time Seen by Provider: 09/04/17 15:12 Source of Information: Reports: Patient, Old Records, RN Notes Reviewed History Limitations: Reports: No Limitations - History of Present Illness INITIAL COMMENTS - FREE TEXT/NARRATIVE: 76-year-old female presents emergency department day complaint of chest pain and shortness of breath, she states she's been getting more and more short of breath over the last 3 weeks it is definitely worse with exertion over the last couple of days she's been noticing chest pain predominately in the left upper portion of her chest it will come and go is relieved by rest does not radiate anywhere, she has no associated nausea or vomiting or diaphoresis, does have a known history of congestive heart failure of which she takes for low semi-20 mg once a day she admits that she is intermittent on this medication and will not take it on days that she has appointments or errands to run Anterior Chest Pain Score (Numeric/FACES): 0 - Related Data Allergies Allergy/AdvReac Type Severity Reaction Status Date / Time atorvastatin calcium Allergy Swelling Verified 09/04/17 14:12 [From Lipitor] oxycodone Allergy Itching Verified 09/04/17 14:12 duloxetine HCl AdvReac Depression Verified 09/04/17 14:12 [From Cymbalta] hydrocodone AdvReac Hallucinati Verified 09/04/17 14:12 ons lisinopril AdvReac Cough Verified 09/04/17 14:12 Home Meds: Home Meds Aspirin 81 mg PO DAILY 10/29/15 [History] Carbidopa/Levodopa [Carbidopa-Levodopa 25-100] 2 tab PO QID 10/29/15 [History] Carvedilol [Coreg] 12.5 mg PO BID 10/29/15 [History] Citalopram [Citalopram HBr] 20 mg PO DAILY 10/29/15 [History] Levothyroxine 125 mcg PO ACBREAKFAST 10/29/15 [History] Losartan [Cozaar] 25 mg PO DAILY 10/29/15 [History] Nitroglycerin [Nitrostat] 0.4 mg SL ASDIRECTED 10/29/15 [History] OXcarbazepine [Oxcarbazepine] 300 mg PO BID 10/29/15 [History] Omeprazole 20 mg PO DAILY 10/29/15 [History] Simvastatin 40 mg PO BEDTIME 10/29/15 [History] Venlafaxine HCl [Venlafaxine ER] 150 mg PO DAILY 10/29/15 [History] Warfarin [Coumadin] 2.5 mg PO ASDIRECTED 10/29/15 [History] Warfarin [Coumadin] 5 mg PO MOFR 10/29/15 [History] ARIPiprazole [Abilify] 2 mg PO DAILY 05/18/16 [History] Celecoxib [CeleBREX] 200 mg PO DAILY PRN 05/18/16 [History] LORazepam 0.5 - 1 tab PO BEDTIME PRN 05/18/16 [History] Venlafaxine HCl [Venlafaxine ER] 37.5 mg PO DAILY 05/18/16 [History] Calcium Carbonate/Vitamin D3 [Calcium 500-Vit D3 200 Tablet] 1 tab PO BID [History] Cholecalciferol (Vitamin D3) [Vitamin D3] 1 tab PO DAILY 05/29/16 [History] Ferrous Sulfate 325 mg PO DAILY 05/29/16 [History] Furosemide 20 mg PO DAILY 05/29/16 [History] Potassium Chloride 10 meq PO DAILY 05/29/16 [History] ALPRAZolam [Xanax] 0.25 mg PO ASDIRECTED PRN 03/03/17 [History] Ofloxacin [Floxin 0.3% Otic Soln] 10 drop EARLF ASDIRECTED 03/03/17 [History] Past Medical History HEENT History: Reports: Impaired Vision, Sinusitis Cardiovascular History: Reports: Afib, CAD, Heart Failure, High Cholesterol, Hypertension, [place], Pacemaker, SOB on Exertion Respiratory History: Reports: Other (See Below) Other Respiratory History: "fluid on the lungs" Gastrointestinal History: Reports: GERD [employer] History: Reports: 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, Fibroids, Musculoskeletal History: Reports: Osteoarthritis, Osteoporosis Neurological History: Reports: Headaches, Chronic, Seizure Psychiatric History: Reports: Anxiety, Depression Endocrine/Metabolic History: Reports: Hypothyroidism, Other (See Below) Other Endocrine/Metabolic History: Thyroid disease - Infectious Disease History Infectious Disease History: Reports: Chicken Pox, Measles, Mumps - Past Surgical History HEENT Surgical History: Reports: Cataract Surgery, Other (See Below) GI Surgical History: Reports: Appendectomy, Cholecystectomy Endocrine Surgical History: Reports: Other (See Below) Musculoskeletal Surgical History: Reports: Knee Replacement, Shoulder Replacement Social & Family History - Family History Family Medical History: Noncontributory Cardiac: Reports: CAD, Heart Failure, ME - Tobacco Use Smoking Status *Q: Never Smoker Second Hand Smoke Exposure: No - Caffeine Use Caffeine Use: Reports: Coffee - Recreational Drug Use Recreational Drug Use: No ED ROS GENERAL - Review of Systems Review Of Systems: See Below Constitutional: Reports: No Symptoms. Denies: Diaphoresis HEENT: Reports: No Symptoms Respiratory: Reports: Shortness of Breath Cardiovascular: Reports: Chest Pain, Dyspnea on Exertion GI/Abdominal: Reports: No Symptoms. Denies: Nausea, Vomiting : Reports: No Symptoms Musculoskeletal: Reports: No Symptoms Skin: Reports: No Symptoms Neurological: Reports: No Symptoms ED EXAM, GENERAL - Physical Exam Exam: See Below Exam Limited By: No Limitations General Appearance: Alert, WD/WN, No Apparent Distress Head: Atraumatic, Normocephalic Neck: Normal Inspection, Supple, Non-Tender, Full Range of Motion Respiratory/Chest: No Respiratory Distress, No Accessory Muscle Use, Crackles ( Bases bilaterally) Cardiovascular: Regular Rate, Rhythm GI/Abdominal: Soft, Non-Tender Course - Vital Signs Last Recorded V/S: Last Vital Signs Temp 98.1 F 09/04/17 15:05 Pulse 72 09/04/17 15:05 Resp 16 09/04/17 15:05 BP 132/77 09/04/17 15:05 Pulse Ox 96 09/04/17 15:05 - Orders/Labs/Meds Orders: Active Orders 24 hr Category Date Time Status Cardiac Monitoring [RC] .As Directed Care 09/04/17 14:13 Active EKG Documentation Completion [RC] ASDIRECTED Care 09/04/17 14:14 Active Chest 2V [CR] Stat Exams 09/04/17 14:14 Taken EKG 12 Lead [EK] Stat Ther 09/04/17 14:14 Ordered Labs: Laboratory Tests 09/04/17 09/04/17 09/04/17 Range/Units 14:22 14:22 14:22 WBC 10.1 (4.5-11.0) K/uL RBC 4.71 (3.30-5.50) M/uL Hgb 14.4 (12.0-15.0) g/dL Hct 43.4 (36.0-48.0) % MCV 92 (80-98) fL MCH 31 (27-31) pg MCHC 33 (32-36) % Plt Count 220 (150-400) K/uL Neut % (Auto) 72 H (36-66) % Lymph % (Auto) 15 L (24-44) % Donley % (Auto) 13 H (2-6) % Eos % (Auto) 0 L (2-4) % Baso % (Auto) 0 (0-1) % PT 23.3 H (9.5-12.0) sec INR 2.11 H (0.80-1.20) Sodium 129 L (140-148) mmol/L Potassium 4.1 (3.6-5.2) mmol/L Chloride 95 L (100-108) mmol/L Carbon Dioxide 27 (21-32) mmol/L Anion Gap 11.1 (5.0-14.0) mmol/L BUN 14 (7-18) mg/dL Creatinine 1.0 (0.6-1.0) mg/dL Est Cr Clr Drug Dosing 46.20 mL/min Estimated GFR (MDRD) 54 L (>60) Glucose 106 (74-106) mg/dL Calcium 8.9 (8.5-10.1) mg/dL Total Bilirubin 0.9 (0.2-1.0) mg/dL AST 17 (15-37) U/L ALT 10 L (12-78) U/L Alkaline Phosphatase 116 (46-116) U/L Troponin I < 0.017 (0.000-0.056) ng/mL NT-Pro-B Natriuret Pep 1407 H (5-125) pg/mL Total Protein 7.0 (6.4-8.2) g/dL Albumin 3.5 (3.4-5.0) g/dL Globulin 3.5 (2.3-3.5) g/dL Albumin/Globulin Ratio 1.0 L (1.2-2.2) Meds: Medications Discontinued Medications Generic Name Dose Route Start Last Admin Trade Name Freq PRN Reason Stop Dose Admin Aspirin 324 mg 09/04/17 14:15 09/04/17 14:25 Aspirin PO 09/04/17 14:16 324 mg ONETIME ONE Administration Lorazepam 1 mg 09/04/17 14:15 09/04/17 14:25 Ativan PO 09/04/17 14:16 1 mg ONETIME ONE Administration Departure - Departure Time of Disposition: 15:26 Disposition: Home, Self-Care 01 Condition: Good Clinical Impression: Congestive heart failure Qualifiers: Congestive heart failure type: unspecified congestive heart failure type Congestive heart failure chronicity: acute on chronic Qualified Code(s): I50.9 - Heart failure, unspecified Referrals: Dimitris Camacho MD [Primary Care Provider] - Additional Instructions: Start Lasix 40 mg twice a day once in the morning once in the afternoon for Thursday and Thursday, recommend rechecking your blood work and breathing with your primary care provider on Thursday or Thursday, call return to the emergency department worsening of symptoms - My Orders Last 24 Hours: My Active Orders 09/04/17 14:13 Cardiac Monitoring [RC] .As Directed 09/04/17 14:14 EKG Documentation Completion [RC] ASDIRECTED Chest 2V [CR] Stat EKG 12 Lead [EK] Stat - Assessment/Plan Last 24 Hours: My Active Orders 09/04/17 14:13 Cardiac Monitoring [RC] .As Directed 09/04/17 14:14 EKG Documentation Completion [RC] ASDIRECTED Chest 2V [CR] Stat EKG 12 Lead [EK] Stat Plan: Assessment Acuity = acute Site and laterality = exacerbation of congestive heart failure complicated in a patient with known history of CHF, coronary artery disease Etiology = probably secondary to medical compliance as well as adjustment of medications based upon increasing failure Manifestations = dyspnea on exertion Location of injury = Home Lab values = CBC unremarkable INR therapeutic at 2.11 sodium low at 129 consistent hyponatremia BNP elevated at 1407 consistent fluid overload type pattern chest x-ray shows cardiomegaly official read radiology is pending, EKG demonstrates paced rhythm Plan I did review lab work EKG results with her plan is to start Lasix 40 mg now she will do 40 mg twice a day for the next couple of days then follow-up with her primary care on Thursday or Thursday of next week for reevaluation which would include electrolytes and further adjustment of her Lasix medication Patient was in agreement with the plan all questions were answered, they were instructed to return to the emergency department or call for worsening symptoms. This note was dictated using [employer] voice recognition software please call with any questions.
--- NOTE | 2017-09-07 08:48 | CR ---
Chest 2V INDICATION: Chest Pain FINDINGS: Comparison 03/03/2017. Left-sided pacemaker in place. Stable mild cardiac enlargement. Hypert rophic changes thoracic spine. Left reverse total shoulder arthroplasty. Exam otherwise negative.
== END 2017-09-04 15:50 | disposition home or self-care (01) ==
LOC: JP.ED 14:07
DX: I11.0 Hypertensive heart disease with heart failure (principal); I50.9 Heart failure, unspecified; I25.10 Atherosclerotic heart disease of native coronary artery without angina pectoris; I48.91 Unspecified atrial fibrillation; Z79.82 Long term (current) use of aspirin; Z79.899 Other long term (current) drug therapy; Z88.8 Allergy status to other drugs, medicaments and biological substances; Z88.6 Allergy status to analgesic agent
CPT/HCPCS: 36415; 71020; 80053; 83880; 84484; 85025; 85610; 99285; A9270; 93005; 93010; 99284

== ENCOUNTER 2017-09-21 08:56 | Emergency (ER) | payer MEDICARE ==
--- NOTE | 2017-09-21 09:32 | EDM.PDOC ---
ED HPI GENERAL MEDICAL PROBLEM - General Chief Complaint: Headache Stated Complaint: [facility] Time Seen by Provider: 09/21/17 09:15 Source of Information: Reports: Patient, EMS, Family, Old Records, RN History Limitations: Reports: Other (Patient not a great historian) - History of Present Illness INITIAL COMMENTS - FREE TEXT/NARRATIVE: 76 yo female here with a complaint of AMAYA, blurred vision, and nausea along with low BP. Has been on a new nitrate medicine since last Thursday that she takes TID. Has had no adverse SE's from this med through the weekend. Now has the above complaints and wonders if it is from this new med. Arrives via EMS after receiving Zofran IV for her nausea without vomiting. At this time her nausea is reduced, but not gone. All of her other sx's have mostly resolved by the time she arrives. Has had intermittent mild anterior chest pains lately that are worse with exertion. Her doctor is aware of this fact. She is scheduled for an ECHO today at 11 am. Has known CAD and CHF. Her orthopnea is not worse than usual. Has been noting intermittent flashing lights in both eyes since her last eye exam that is not otherwise changing her vision, she is still able to read normal sized print and does this regularly as she enjoys reading and does so regularly. Also, was here on 09/04/17 and Officer increased her furosemide from 20 mg qam to 40 mg q am for fluid retention/CHF at that time. Onset: Today Onset Date: 09/21/17 Onset Time: 07:40 Duration: Minutes:, Improving Location: Reports: Head Quality: Reports: Ache Severity: Moderate Improves with: Reports: Other (? time) Worsens with: Reports: Other (unknown) Context: Reports: Other (Had taken her nitrate medicine today before onset of sx 's, but had not had this reaction with prior doses of this same med. ) Associated Symptoms: Reports: Headaches, Nausea/Vomiting (no vomiting). 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 (see below) (Zofran IV per EMS) - Related Data Allergies Allergy/AdvReac Type Severity Reaction Status Date / Time atorvastatin calcium Allergy Swelling Verified 09/21/17 09:58 [From Lipitor] oxycodone Allergy Itching Verified 09/21/17 09:58 duloxetine HCl AdvReac Depression Verified 09/21/17 09:58 [From Cymbalta] hydrocodone AdvReac Hallucinati Verified 09/21/17 09:58 ons lisinopril AdvReac Cough Verified 09/21/17 09:58 Home Meds: Home Meds Aspirin 81 mg PO DAILY 10/29/15 [History] Carbidopa/Levodopa [Carbidopa-Levodopa 25-100] 2 tab PO QID 10/29/15 [History] Carvedilol [Coreg] 12.5 mg PO BID 10/29/15 [History] Citalopram [Citalopram HBr] 20 mg PO DAILY 10/29/15 [History] Levothyroxine 112 mcg PO ACBREAKFAST 10/29/15 [History] Losartan [Cozaar] 25 mg PO DAILY 10/29/15 [History] Nitroglycerin [Nitrostat] 0.4 mg SL ASDIRECTED 10/29/15 [History] OXcarbazepine [Oxcarbazepine] 300 mg PO BID 10/29/15 [History] Omeprazole 20 mg PO DAILY 10/29/15 [History] Simvastatin 40 mg PO BEDTIME 10/29/15 [History] Venlafaxine HCl [Venlafaxine ER] 150 mg PO DAILY 10/29/15 [History] Warfarin [Coumadin] 2.5 mg PO ASDIRECTED 10/29/15 [History] Warfarin [Coumadin] 5 mg PO MOFR 10/29/15 [History] ARIPiprazole [Abilify] 2 mg PO DAILY 05/18/16 [History] Celecoxib [CeleBREX] 200 mg PO DAILY PRN 05/18/16 [History] LORazepam 0.5 - 1 tab PO BEDTIME PRN 05/18/16 [History] Venlafaxine HCl [Venlafaxine ER] 37.5 mg PO DAILY 05/18/16 [History] Calcium Carbonate/Vitamin D3 [Calcium 500-Vit D3 200 Tablet] 1 tab PO BID [History] Cholecalciferol (Vitamin D3) [Vitamin D3] 1 tab PO DAILY 05/29/16 [History] Ferrous Sulfate 325 mg PO DAILY 05/29/16 [History] Furosemide 40 mg PO DAILY 05/29/16 [History] Potassium Chloride 10 meq PO DAILY 05/29/16 [History] ALPRAZolam [Xanax] 0.25 mg PO ASDIRECTED PRN 03/03/17 [History] Ofloxacin [Floxin 0.3% Otic Soln] 10 drop EARLF ASDIRECTED 03/03/17 [History] Isosorbide Dinitrate [Isordil] 1 tab PO TID 09/21/17 [History] Past Medical History HEENT History: Reports: Impaired Vision, Sinusitis Cardiovascular History: Reports: Afib, CAD, Heart Failure, High Cholesterol, Hypertension, [place], Pacemaker, SOB on Exertion Respiratory History: Reports: Other (See Below) Other Respiratory History: "fluid on the lungs" Gastrointestinal History: Reports: GERD 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: 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, Fibroids, Musculoskeletal History: Reports: Osteoarthritis, Osteoporosis Neurological History: Reports: Headaches, Chronic, Seizure Psychiatric History: Reports: Anxiety, Depression Endocrine/Metabolic History: Reports: Hypothyroidism, Other (See Below) Other Endocrine/Metabolic History: Thyroid disease - Infectious Disease History Infectious Disease History: Reports: Chicken Pox, Measles, Mumps - Past Surgical History HEENT Surgical History: Reports: Cataract Surgery, Other (See Below) GI Surgical History: Reports: Appendectomy, Cholecystectomy Endocrine Surgical History: Reports: Other (See Below) Musculoskeletal Surgical History: Reports: Knee Replacement, Shoulder Replacement Social & Family History - Family History Family Medical History: Noncontributory Cardiac: Reports: CAD, Heart Failure, [place] - Tobacco Use Smoking Status *Q: Never Smoker Second Hand Smoke Exposure: No - Caffeine Use Caffeine Use: Reports: Coffee - Recreational Drug Use Recreational Drug Use: No ED ROS GENERAL - Review of Systems Review Of Systems: See Below Constitutional: Reports: No Symptoms HEENT: Reports: No Symptoms, Other (intermittent flashing lights, bilat. Not today.) Respiratory: Reports: No Symptoms Cardiovascular: Reports: Chest Pain (intermittently lately, not today.) Endocrine: Reports: No Symptoms GI/Abdominal: Reports: Nausea. Denies: Abdominal Pain, Anorexia, Black Stool, Bloody Stool, Constipation, Diarrhea, Decreased Appetite, Distension, Hematemesis, Hematochezia, Vomiting : Reports: No Symptoms Musculoskeletal: Reports: No Symptoms Skin: Reports: No Symptoms Neurological: Reports: Dizziness (now gone), Headache (now gone), Difficulty Walking (now improved). Denies: Confusion, Numbness, Paresthesia, Syncope, Tremors, Trouble Speaking Psychiatric: Reports: No Symptoms Hematologic/Lymphatic: Reports: No Symptoms - Physical Exam Exam: See Below Exam Limited By: No Limitations General Appearance: Alert, WD/WN, No Apparent Distress Eye Exam: Bilateral Eye: EOMI, Normal Inspection, PERRL Ears: Normal External Exam, Normal Canal, Hearing Grossly Normal, Normal TMs Nose: Normal Inspection, Normal Mucosa, No Blood Throat/Mouth: Normal Inspection, Normal Lips, Normal Oropharynx, Normal Voice, No Airway Compromise Head Exam: Atraumatic, Normocephalic Neck: Normal Inspection, Supple, Non-Tender. No: Lymphadenopathy (R), Lymphadenopathy (L) Respiratory/Chest: No Respiratory Distress, Lungs Clear, Normal Breath Sounds, No Accessory Muscle Use Cardiovascular: Regular Rate, Rhythm, No Edema GI/Abdominal: Normal Bowel Sounds, Soft, Non-Tender, No Distention Neuro Exam (Abbreviated): Alert, Oriented, CN II-XII Intact, Normal Cognition, No Motor/Sensory Deficits Back Exam: Normal Inspection, Full Range of Motion. No: CVA Tenderness (R), CVA Tenderness (L) Extremities: Normal Inspection, Normal Range of Motion, Non-Tender, No Pedal Edema Psychiatric: Normal Affect, Normal Mood Skin Exam: Warm, Dry, Intact, Normal Color, No Rash Course - Vital Signs Last Recorded V/S: Last Vital Signs Temp 35.8 C 09/21/17 09:21 Pulse 70 09/21/17 09:21 Resp 16 09/21/17 09:21 BP 106/57 L 09/21/17 09:21 Pulse Ox 97 09/21/17 09:21 Orthostatic Blood Pressure [ 91/52 Standing] Orthostatic Blood Pressure [ 117/68 Sitting] Orthostatic Blood Pressure [ 122/67 Supine] - Orders/Labs/Meds Orders: Active Orders 24 hr Category Date Time Status Cardiac Monitoring [RC] .As Directed Care 09/21/17 09:22 Active Orthostatic Vital Signs [RC] ASDIRECTED Care 09/21/17 09:22 Active Labs: Laboratory Tests 09/21/17 09/21/17 09/21/17 Range/Units 09:30 09:30 09:57 WBC 10.3 (4.5-11.0) K/uL RBC 4.41 (3.30-5.50) M/uL Hgb 13.5 (12.0-15.0) g/dL Hct 40.8 (36.0-48.0) % MCV 93 (80-98) fL MCH 31 (27-31) pg MCHC 33 (32-36) % Plt Count 216 (150-400) K/uL Sodium 135 L (140-148) mmol/L Potassium 3.9 (3.6-5.2) mmol/L Chloride 98 L (100-108) mmol/L Carbon Dioxide 32 (21-32) mmol/L Anion Gap 8.9 (5.0-14.0) mmol/L BUN 23 H D (7-18) mg/dL Creatinine 1.1 H (0.6-1.0) mg/dL Est Cr Clr Drug Dosing 40.38 mL/min Estimated GFR (MDRD) 49 L (>60) Glucose 94 (74-106) mg/dL Calcium 8.9 (8.5-10.1) mg/dL Troponin I < 0.017 (0.000-0.056) ng/mL Urine Color Yellow Urine Appearance Slightly cloudy Urine pH 5.0 (4.5-8.0) Ur Specific [place] 1.020 (1.008-1.030) Urine Protein 30 H (NEGATIVE) mg/dL Urine Glucose (UA) Normal (NEGATIVE) mg/dL Urine Ketones 15 H (NEGATIVE) mg/dL Urine Occult Blood Negative (NEGATIVE) Urine Nitrite Negative (NEGATIVE) Urine Bilirubin Small (NEGATIVE) Urine Urobilinogen 4 (NORMAL) mg/dL Ur Leukocyte Esterase Moderate (NEGATIVE) Urine RBC 0-5 (0-5) Urine WBC 5-10 H (0-5) Ur Epithelial Cells Moderate Amorphous Sediment Moderate Urine Bacteria Not seen Urine Mucus Few Urine Other Meds: Medications Discontinued Medications Generic Name Dose Route Start Last Admin Trade Name Freq PRN Reason Stop Dose Admin Sodium Chloride 1,000 mls @ 1,000 mls/hr 09/21/17 10:11 09/21/17 10:20 Normal Saline IV 09/21/17 11:10 1,000 mls/hr .BOLUS ONE Administration Departure - Departure Time of Disposition: 11:26 Disposition: Home, Self-Care 01 Condition: Good Clinical Impression: Mild dehydration, Orthostatic hypotension - Discharge Information Referrals: PCP,None [Primary Care Provider] - Forms: ED Department Discharge Additional Instructions: Decrease your furosemide to 40 mg one day alternating with 20 mg every other day. Continue your usual meds otherwise without change. Take only 20 mg today if you haven't yet taken any furosemide. Recheck with your doctor in a week. - My Orders Last 24 Hours: My Active Orders 09/21/17 09:22 Cardiac Monitoring [RC] .As Directed Orthostatic Vital Signs [RC] ASDIRECTED - Assessment/Plan Last 24 Hours: My Active Orders 09/21/17 09:22 Cardiac Monitoring [RC] .As Directed Orthostatic Vital Signs [RC] ASDIRECTED
[2017-09-21] MEDS ORDERED: Sodium Chloride 0.9% 1,000 ML IV ONE (10:11)
[2017-09-21 11:34] VITALS: BP 134/78
== END 2017-09-21 11:44 | disposition home or self-care (01) ==
LOC: JP.ED 08:56
DX: E86.0 Dehydration (principal); I95.1 Orthostatic hypotension; I11.0 Hypertensive heart disease with heart failure; I50.9 Heart failure, unspecified; K21.9 Gastro-esophageal reflux disease without esophagitis; F32.9 Major depressive disorder, single episode, unspecified; E03.9 Hypothyroidism, unspecified; Z79.82 Long term (current) use of aspirin; Z79.01 Long term (current) use of anticoagulants; Z79.899 Other long term (current) drug therapy; Z88.5 Allergy status to narcotic agent; Z88.6 Allergy status to analgesic agent; Z88.8 Allergy status to other drugs, medicaments and biological substances; I50.22 Chronic systolic (congestive) heart failure; I20.8 Other forms of angina pectoris; R07.9 Chest pain, unspecified
CPT/HCPCS: 36415; 80048; 81001; 84484; 85027; 93306; 96360; 99283; 99284; J7040

== ENCOUNTER 2018-05-11 10:52 | Emergency (ER) | payer MEDICARE ==
--- NOTE | 2018-05-11 11:37 | EDM.PDOC ---
ED HPI GENERAL MEDICAL PROBLEM - General Chief Complaint: Cardiovascular Problem Stated Complaint: CHEST DISCOMFORT/INDIGESTION Time Seen by Provider: 05/11/18 11:35 Source of Information: Reports: Patient, Old Records, RN History Limitations: Reports: No Limitations - History of Present Illness INITIAL COMMENTS - FREE TEXT/NARRATIVE: 77 yo female with a pacemaker and a hx of afib presents with mild L sided chest pain that began last night(midnight). She took 1 NTG last night with relief, but when she awoke today it was back, but less severe. She has not taken any additional NTG for this today. Has no SOB, nausea, or diaphoresis. No radiation of the pain. Has not missed any of her meds and her BP is running today a little higher than normal. Was therapeutic with her INR 2 weeks ago. 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 (see below) (none today.) Left Chest Pain Score (Numeric/FACES): 6 - Related Data Allergies Allergy/AdvReac Type Severity Reaction Status Date / Time atorvastatin calcium Allergy Swelling Verified 05/11/18 11:17 [From Lipitor] oxycodone Allergy Itching Verified 05/11/18 11:17 duloxetine HCl AdvReac Depression Verified 05/11/18 11:17 [From Cymbalta] hydrocodone AdvReac Hallucinati Verified 05/11/18 11:17 ons lisinopril AdvReac Cough Verified 05/11/18 11:17 Home Meds: Home Meds Aspirin 81 mg PO DAILY 10/29/15 [History] Carbidopa/Levodopa [Carbidopa-Levodopa 25-100] 2 tab PO QID 10/29/15 [History] Carvedilol [Coreg] 12.5 mg PO BID 10/29/15 [History] Citalopram [Citalopram HBr] 20 mg PO DAILY 10/29/15 [History] Levothyroxine 112 mcg PO ACBREAKFAST 10/29/15 [History] Losartan [Cozaar] 25 mg PO DAILY 10/29/15 [History] Nitroglycerin [Nitrostat] 0.4 mg SL ASDIRECTED 10/29/15 [History] OXcarbazepine [Oxcarbazepine] 300 mg PO BID 10/29/15 [History] Omeprazole 20 mg PO DAILY 10/29/15 [History] Simvastatin 40 mg PO BEDTIME 10/29/15 [History] Venlafaxine HCl [Venlafaxine ER] 150 mg PO DAILY 10/29/15 [History] Warfarin [Coumadin] 2.5 mg PO ASDIRECTED 10/29/15 [History] Warfarin [Coumadin] 5 mg PO MOFR 10/29/15 [History] ARIPiprazole [Abilify] 2 mg PO DAILY 05/18/16 [History] Celecoxib [CeleBREX] 200 mg PO DAILY PRN 05/18/16 [History] LORazepam 0.5 - 1 tab PO BEDTIME PRN 05/18/16 [History] Venlafaxine HCl [Venlafaxine ER] 37.5 mg PO DAILY 05/18/16 [History] Calcium Carbonate/Vitamin D3 [Calcium 500-Vit D3 200 Tablet] 1 tab PO BID [History] Cholecalciferol (Vitamin D3) [Vitamin D3] 1 tab PO DAILY 05/29/16 [History] Ferrous Sulfate 325 mg PO DAILY 05/29/16 [History] Furosemide 40 mg PO DAILY 05/29/16 [History] Potassium Chloride 10 meq PO DAILY 05/29/16 [History] ALPRAZolam [Xanax] 0.25 mg PO ASDIRECTED PRN 03/03/17 [History] Ofloxacin [Floxin 0.3% Otic Soln] 10 drop EARLF ASDIRECTED 03/03/17 [History] Isosorbide Dinitrate [Isordil] 1 tab PO TID 09/21/17 [History] Past Medical History HEENT History: Reports: Impaired Vision, Sinusitis Cardiovascular History: Reports: Afib, CAD, Heart Failure, High Cholesterol, Hypertension, [place], Pacemaker, SOB on Exertion Respiratory History: Reports: Other (See Below) Other Respiratory History: "fluid on the lungs" Gastrointestinal History: Reports: GERD 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: 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, Fibroids, Musculoskeletal History: Reports: Osteoarthritis, Osteoporosis Neurological History: Reports: Headaches, Chronic, Seizure Psychiatric History: Reports: Anxiety, Depression Endocrine/Metabolic History: Reports: Hypothyroidism, Other (See Below) Other Endocrine/Metabolic History: Thyroid disease - Infectious Disease History Infectious Disease History: Reports: Chicken Pox, Measles, Mumps - Past Surgical History HEENT Surgical History: Reports: Cataract Surgery, Other (See Below) GI Surgical History: Reports: Appendectomy, Cholecystectomy Endocrine Surgical History: Reports: Other (See Below) Musculoskeletal Surgical History: Reports: Knee Replacement, Shoulder Replacement Social & Family History - Family History Family Medical History: Noncontributory Cardiac: Reports: CAD, Heart Failure, [place] - Caffeine Use Caffeine Use: Reports: Coffee ED ROS GENERAL - Review of Systems Review Of Systems: See Below Constitutional: Reports: No Symptoms Respiratory: Reports: No Symptoms Cardiovascular: Reports: Chest Pain GI/Abdominal: Reports: No Symptoms Musculoskeletal: Reports: No Symptoms Skin: Reports: No Symptoms Neurological: Reports: No Symptoms ED EXAM, GENERAL - Physical Exam Exam: See Below Exam Limited By: No Limitations General Appearance: Alert, WD/WN, No Apparent Distress, Obese Eye Exam: Bilateral Eye: Normal Inspection Ears: Normal External Exam (hearing aids), Normal Canal, Hearing Loss Ear Exam: Bilateral Ear: Auricle Normal Nose: Normal Inspection, Normal Mucosa, No Blood Throat/Mouth: Normal Inspection, Normal Lips, Normal Oropharynx, Normal Voice, No Airway Compromise Head: Atraumatic, Normocephalic Neck: Normal Inspection, Supple, Non-Tender Respiratory/Chest: No Respiratory Distress, Lungs Clear, Normal Breath Sounds, No Accessory Muscle Use Cardiovascular: Regular Rate, Rhythm, No Edema GI/Abdominal: Normal Bowel Sounds, Soft, Non-Tender, No Distention Extremities: Normal Inspection, Normal Range of Motion, Non-Tender, No Pedal Edema Neurological: Alert, Oriented, CN II-XII Intact, Normal Cognition, No Motor/ Sensory Deficits Psychiatric: Normal Affect, Normal Mood Skin Exam: Warm, Dry, Intact, Normal Color, No Rash Lymphatic: No Adenopathy EKG INTERPRETATION EKG Date: 05/11/18 Time: 11:25 Rhythm: Other (paced rhythm) Rate (Beats/Min): 70 P-Wave: Absent Comparison: No Change Course - Vital Signs Text/Narrative:: feeling better at time of discharge. Last Recorded V/S: Last Vital Signs Temp 36.4 C 05/11/18 11:39 Pulse 72 07/17/18 11:39 Resp 25 H 05/11/18 11:39 BP 173/88 H 05/11/18 12:48 Pulse Ox 96 05/11/18 11:39 - Orders/Labs/Meds Orders: Active Orders 24 hr Category Date Time Status Cardiac Monitoring [RC] .As Directed Care 05/11/18 11:35 Active EKG Documentation Completion [RC] ASDIRECTED Care 05/11/18 11:18 Active EKG Documentation Completion [RC] ASDIRECTED Care 05/11/18 11:35 Active Nitroglycerin [Nitrostat] Med 05/11/18 11:45 Active 0.4 mg SL Q5M PRN Sodium Chloride 0.9% [Saline Flush] Med 05/11/18 11:46 Active 10 ml FLUSH ASDIRECTED PRN Saline Lock Insert [OM.PC] Routine Oth 05/11/18 11:46 Ordered EKG 12 Lead [EK] Routine Ther 05/11/18 11:18 Ordered EKG 12 Lead [EK] Routine Ther 05/11/18 11:35 Ordered Medication Orders Nitroglycerin (Nitrostat) 0.4 mg SL Q5M PRN PRN Reason: Chest Pain Last Admin: 05/11/18 12:48 Dose: 0.4 mg Sodium Chloride (Saline Flush) 10 ml FLUSH ASDIRECTED PRN PRN Reason: Keep Vein Open Labs: Laboratory Tests 05/11/18 05/11/18 Range/Units 11:43 13:02 Sodium 134 L (140-148) mmol/L Potassium 4.1 (3.6-5.2) mmol/L Chloride 99 L (100-108) mmol/L Carbon Dioxide 27 (21-32) mmol/L Anion Gap 12.1 (5.0-14.0) mmol/L BUN 14 (7-18) mg/dL Creatinine 1.0 (0.6-1.0) mg/dL Est Cr Clr Drug Dosing 45.50 mL/min Estimated GFR (MDRD) 54 L (>60) Glucose 109 H (74-106) mg/dL Calcium 9.0 (8.5-10.1) mg/dL Troponin I < 0.017 (0.000-0.056) ng/mL Meds: Medications Generic Name Dose Route Start Last Admin Trade Name Freq PRN Reason Stop Dose Admin Nitroglycerin 0.4 mg 05/11/18 11:45 05/11/18 12:48 Nitrostat SL 0.4 mg Q5M PRN Administration Chest Pain Sodium Chloride 10 ml 05/11/18 11:46 Saline Flush FLUSH ASDIRECTED PRN Keep Vein Open Discontinued Medications Generic Name Dose Route Start Last Admin Trade Name Chris PRN Reason Stop Dose Admin Carvedilol 12.5 mg 05/11/18 13:03 Coreg PO 05/11/18 13:04 ONETIME ONE Departure - Departure Time of Disposition: 13:38 Disposition: Home, Self-Care 01 Condition: Good Clinical Impression: Atypical chest pain HTN (hypertension) Qualifiers: Hypertension type: unspecified Qualified Code(s): I10 - Essential (primary) hypertension Referrals: Dimitris Camacho MD [Primary Care Provider] - Forms: ED Department Discharge Additional Instructions: Double the dose of your Coreg to 25 mg every 12 hrs. Recheck in the clinic within the week, call for an appt. Return here as needed. Other meds as currently. - My Orders Last 24 Hours: My Active Orders 05/11/18 11:18 EKG Documentation Completion [RC] ASDIRECTED EKG 12 Lead [EK] Routine 05/11/18 11:35 Cardiac Monitoring [RC] .As Directed EKG Documentation Completion [RC] ASDIRECTED EKG 12 Lead [EK] Routine 05/11/18 11:45 Nitroglycerin [Nitrostat] 0.4 mg SL Q5M PRN 05/11/18 11:46 Sodium Chloride 0.9% [Saline Flush] 10 ml FLUSH ASDIRECTED PRN Saline Lock Insert [OM.PC] Routine - Assessment/Plan Last 24 Hours: My Active Orders 05/11/18 11:18 EKG Documentation Completion [RC] ASDIRECTED EKG 12 Lead [EK] Routine 05/11/18 11:35 Cardiac Monitoring [RC] .As Directed EKG Documentation Completion [RC] ASDIRECTED EKG 12 Lead [EK] Routine 05/11/18 11:45 Nitroglycerin [Nitrostat] 0.4 mg SL Q5M PRN 05/11/18 11:46 Sodium Chloride 0.9% [Saline Flush] 10 ml FLUSH ASDIRECTED PRN Saline Lock Insert [OM.PC] Routine
[2018-05-11] MEDS ORDERED: Nitroglycerin 0.4 MG Tab.SL SL PRN (11:45)
[2018-05-11] MEDS ORDERED: Sodium Chloride 0.9% 10 ML Syringe FLUSH PRN (11:46)
[2018-05-11] MEDS ORDERED: Carvedilol 12.5 MG Tab PO ONE (13:03)
[2018-05-11 13:52] VITALS: BP 152/90
== END 2018-05-11 13:56 | disposition home or self-care (01) ==
LOC: JP.ED 10:52
DX: R07.89 Other chest pain (principal); I11.0 Hypertensive heart disease with heart failure; I50.9 Heart failure, unspecified; I48.91 Unspecified atrial fibrillation; I25.2 Old myocardial infarction; K21.9 Gastro-esophageal reflux disease without esophagitis; F41.9 Anxiety disorder, unspecified; F32.9 Major depressive disorder, single episode, unspecified; E03.9 Hypothyroidism, unspecified; Z79.82 Long term (current) use of aspirin; Z79.899 Other long term (current) drug therapy; Z88.6 Allergy status to analgesic agent; Z88.8 Allergy status to other drugs, medicaments and biological substances
CPT/HCPCS: 36415; 80048; 84484; 93005; 99284; A9270

== ENCOUNTER 2018-11-30 20:59 | Emergency (ER) | payer MEDICARE ==
[2018-11-30 21:12] VITALS: BP 152/83
--- NOTE | 2018-11-30 21:18 | EDM.PDOC ---
ED HPI GENERAL MEDICAL PROBLEM - General Chief Complaint: Chest Pain Stated Complaint: CHEST PAIN Time Seen by Provider: 11/30/18 21:00 Source of Information: Reports: Patient, Family History Limitations: Reports: No Limitations - History of Present Illness INITIAL COMMENTS - FREE TEXT/NARRATIVE: 78-year-old female arrives with chest pain off and on for the past week. I think it's actually been going on chronically, she has been seen for chest pain in the emergency room 7 times over the last 3 years. She does have congestive heart failure with only 30% ejection fraction, and a ventricular pacemaker. The pain is left-sided, stabbing and brief and sometimes radiates down into the epigastric area. She feels short of breath especially with activity, this is also chronic. She looks completely comfortable, O2 sats are 98% and blood pressure is normal, she is afebrile. Onset: Unknown/Unsure Worsens with: Reports: Other (Activity causes shortness of breath but not chest pain) Associated Symptoms: Reports: Chest Pain, Shortness of Breath. Denies: Cough, Fever/Chills, Headaches - Related Data Allergies Allergy/AdvReac Type Severity Reaction Status Date / Time atorvastatin calcium Allergy Swelling Verified 11/30/18 21:14 [From Lipitor] oxycodone Allergy Itching Verified 11/30/18 21:14 duloxetine HCl AdvReac Depression Verified 11/30/18 21:14 [From Cymbalta] hydrocodone AdvReac Hallucinati Verified 11/30/18 21:14 ons lisinopril AdvReac Cough Verified 11/30/18 21:14 Home Meds: Home Meds Aspirin 81 mg PO DAILY 10/29/15 [History] Carbidopa/Levodopa [Carbidopa-Levodopa 25-100] 2 tab PO QID 10/29/15 [History] Carvedilol [Coreg] 12.5 mg PO BID 10/29/15 [History] Citalopram [Citalopram HBr] 20 mg PO DAILY 10/29/15 [History] Levothyroxine 112 mcg PO ACBREAKFAST 10/29/15 [History] Losartan [Cozaar] 25 mg PO DAILY 10/29/15 [History] Nitroglycerin [Nitrostat] 0.4 mg SL ASDIRECTED 10/29/15 [History] OXcarbazepine [Oxcarbazepine] 300 mg PO BID 10/29/15 [History] Omeprazole 20 mg PO DAILY 10/29/15 [History] Simvastatin 40 mg PO BEDTIME 10/29/15 [History] Venlafaxine HCl [Venlafaxine ER] 150 mg PO DAILY 10/29/15 [History] Warfarin [Coumadin] 2.5 mg PO ASDIRECTED 10/29/15 [History] Warfarin [Coumadin] 5 mg PO MOFR 10/29/15 [History] ARIPiprazole [Abilify] 2 mg PO DAILY 05/18/16 [History] Celecoxib [CeleBREX] 200 mg PO DAILY PRN 05/18/16 [History] LORazepam 0.5 - 1 tab PO BEDTIME PRN 05/18/16 [History] Venlafaxine HCl [Venlafaxine ER] 37.5 mg PO DAILY 05/18/16 [History] Calcium Carbonate/Vitamin D3 [Calcium 500-Vit D3 200 Tablet] 1 tab PO BID [History] Cholecalciferol (Vitamin D3) [Vitamin D3] 1 tab PO DAILY 05/29/16 [History] Furosemide 20 mg PO DAILY 05/29/16 [History] Potassium Chloride 10 meq PO DAILY 05/29/16 [History] ALPRAZolam [Xanax] 0.25 mg PO ASDIRECTED PRN 03/03/17 [History] Ofloxacin [Floxin 0.3% Otic Soln] 10 drop EARLF ASDIRECTED 03/03/17 [History] Isosorbide Dinitrate [Isordil] 1 tab PO TID 09/21/17 [History] Past Medical History HEENT History: Reports: Impaired Vision, Sinusitis Cardiovascular History: Reports: Afib, CAD, Heart Failure, High Cholesterol, Hypertension, [place], Pacemaker, SOB on Exertion Respiratory History: Reports: Other (See Below) Other Respiratory History: "fluid on the lungs" Gastrointestinal History: Reports: GERD Genitourinary History: Reports: Urinary Incontinence BLASTING [employer] MAN History: Reports: 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, Fibroids, Musculoskeletal History: Reports: Osteoarthritis, Osteoporosis Neurological History: Reports: Headaches, Chronic, Seizure Psychiatric History: Reports: Anxiety, Depression Endocrine/Metabolic History: Reports: Hypothyroidism, Other (See Below) Other Endocrine/Metabolic History: Thyroid disease Hematologic History: Reports: Anticoagulation Therapy - Infectious Disease History Infectious Disease History: Reports: Chicken Pox, Measles, Mumps - Past Surgical History Head Surgeries/Procedures: Reports: None HEENT Surgical History: Reports: Cataract Surgery, Other (See Below) GI Surgical History: Reports: Appendectomy, Cholecystectomy Female Surgical History: Reports: Hysterectomy, Salpingo-Oophorectomy Endocrine Surgical History: Reports: Other (See Below) Musculoskeletal Surgical History: Reports: Knee Replacement, Shoulder Replacement Dermatological Surgical History: Reports: None Social & Family History - Family History Family Medical History: Noncontributory Cardiac: Reports: CAD, Heart Failure, PR - Caffeine Use Caffeine Use: Reports: Coffee ED ROS GENERAL - Review of Systems Review Of Systems: See Below Constitutional: Denies: Fever, Chills HEENT: Reports: No Symptoms Respiratory: Reports: Shortness of Breath. Denies: Cough Cardiovascular: Reports: Chest Pain, Dyspnea on Exertion. Denies: Lightheadedness, Palpitations GI/Abdominal: Reports: Abdominal Pain : Reports: No Symptoms Skin: Reports: No Symptoms Neurological: Reports: Dizziness. Denies: Headache Psychiatric: Reports: Anxiety ED EXAM, GENERAL - Physical Exam Exam: See Below Exam Limited By: No Limitations General Appearance: Alert, No Apparent Distress Eye Exam: Bilateral Eye: Normal Inspection Head: Atraumatic Neck: Normal Inspection Respiratory/Chest: No Respiratory Distress, Crackles (A few basilar crackles in the left base, otherwise clear, no wheezing), Other (I could not reproduce any chest pain with palpation) Cardiovascular: Regular Rate, Rhythm GI/Abdominal: Soft, Non-Tender Extremities: Pedal Edema (Symmetric lower extremity edema) Neurological: Alert, Oriented Psychiatric: Anxious Skin Exam: Warm, Dry EKG INTERPRETATION EKG Interpretation Comments: EKG shows ventricular paced rhythm, identical to an EKG done 6 months ago. A two -view chest x-ray was obtained. Course - Vital Signs Last Recorded V/S: Last Vital Signs Temp 98.0 F 11/30/18 21:13 Pulse 70 11/30/18 21:13 Resp 15 11/30/18 21:13 BP 152/83 H 11/30/18 21:13 Pulse Ox 97 11/30/18 21:13 - Orders/Labs/Meds Orders: Active Orders 24 hr Category Date Time Status EKG Documentation Completion [RC] ASDIRECTED Care 11/30/18 21:14 Active Chest 2V [CR] Routine Exams 11/30/18 21:14 Taken EKG 12 Lead [EK] Routine Ther 11/30/18 21:14 Ordered - Re-Assessments/Exams Free Text/Narrative Re-Assessment/Exam: 11/30/18 21:40 EKG showed ventricular paced rhythm. Two-view chest x-ray showed very mild congestive heart failure and cardiomegaly, no infiltrate. I recommended to the patient she take an extra Lasix in the afternoon for the next 3 days. I also gave her some Tylenol with codeine for breakthrough pain, it has worked for her in the past. She admits that the cardiologists have told her there was "nothing more we can do" regarding her chronic pain. Departure - Departure Time of Disposition: 22:05 Disposition: Home, Self-Care 01 Condition: Good Clinical Impression: Atypical chest pain - Discharge Information Instructions: Nonspecific Chest Pain Referrals: Dimitris Camacho MD [Primary Care Provider] - Forms: ED Department Discharge Care Plan Goals: Continue your current medications, and had an extra dose of Lasix in the early afternoon in addition to your morning dose. Take an extra dose for 3 days. Return anytime if worsening, or consider rechecking in 3-4 days if not improving satisfactorily. Use Tylenol 3 for significant pain not responding to just Tylenol. - My Orders Last 24 Hours: My Active Orders 11/30/18 21:14 EKG Documentation Completion [RC] ASDIRECTED Chest 2V [CR] Routine EKG 12 Lead [EK] Routine - Assessment/Plan Last 24 Hours: My Active Orders 11/30/18 21:14 EKG Documentation Completion [RC] ASDIRECTED Chest 2V [CR] Routine EKG 12 Lead [EK] Routine
--- NOTE | 2018-12-01 10:14 | CRLCR ---
INDICATION: Dyspnea TECHNIQUE: Chest 2 views. COMPARISON: None FINDINGS: Cardiomediastinal silhouette: Enlarged cardiac silhouette. Atherosclerotic calcification at the aortic arch. Left chest wall triple lead pacemaker with lead tips projecting over the right atrium, right ventricle, and coronary sinus. Lungs and pleural spaces: Mild central vascular congestion, without socorro pulmonary edema. No focal consolidation. No pleural effusion or pneumothorax. Bones and soft tissues: Left reverse shoulder arthroplasty. IMPRESSION: Mild central vascular congestion. No pulmonary edema or pleural effusions. No focal consolidation. Dictated by Nikki Tatum MD @ Nov 30 2018 9:42PM (Electronically Signed)
== END 2018-11-30 22:05 | disposition home or self-care (01) ==
LOC: JP.ED 20:59
DX: R07.89 Other chest pain (principal); F41.9 Anxiety disorder, unspecified; F32.9 Major depressive disorder, single episode, unspecified; I11.0 Hypertensive heart disease with heart failure; I50.9 Heart failure, unspecified; I25.2 Old myocardial infarction; Z88.8 Allergy status to other drugs, medicaments and biological substances; Z79.899 Other long term (current) drug therapy; Z79.82 Long term (current) use of aspirin
CPT/HCPCS: 71046; 93005; 93010; 99283; 99285-25

== ENCOUNTER 2019-03-01 12:44 | Emergency (ER) | payer MEDICARE ==
[2019-03-01 14:24] VITALS: BP 120/58
--- NOTE | 2019-03-01 14:54 | EDM.PDOC ---
ED HPI GENERAL MEDICAL PROBLEM - General Chief Complaint: Cardiovascular Problem Stated Complaint: FROM CLINIC LOW BLOOD PRESSURE Time Seen by Provider: 03/01/19 14:43 Source of Information: Reports: Patient, Family History Limitations: Reports: No Limitations - History of Present Illness INITIAL COMMENTS - FREE TEXT/NARRATIVE: 78-year-old female presents to emergency department today after being evaluated in clinic found to have a blood pressure of 102/67 concern at that time as she needed to be evaluated in the emergency department, she has no complaints at this time she is asymptomatic. - Related Data Allergies Allergy/AdvReac Type Severity Reaction Status Date / Time atorvastatin calcium Allergy Swelling Verified 03/01/19 14:09 [From Lipitor] oxycodone Allergy Itching Verified 03/01/19 14:09 duloxetine HCl AdvReac Depression Verified 03/01/19 14:09 [From Cymbalta] hydrocodone AdvReac Hallucinati Verified 03/01/19 14:09 ons lisinopril AdvReac Cough Verified 03/01/19 14:09 Home Meds: Home Meds Aspirin 81 mg PO DAILY 10/29/15 [History] Carbidopa/Levodopa [Carbidopa-Levodopa 25-100] 2 tab PO QID 10/29/15 [History] Carvedilol [Coreg] 12.5 mg PO BID 10/29/15 [History] Citalopram [Citalopram HBr] 20 mg PO DAILY 10/29/15 [History] Levothyroxine 112 mcg PO ACBREAKFAST 10/29/15 [History] Losartan [Cozaar] 25 mg PO DAILY 10/29/15 [History] Nitroglycerin [Nitrostat] 0.4 mg SL ASDIRECTED 10/29/15 [History] OXcarbazepine [Oxcarbazepine] 300 mg PO BID 10/29/15 [History] Omeprazole 20 mg PO DAILY 10/29/15 [History] Simvastatin 40 mg PO BEDTIME 10/29/15 [History] Venlafaxine HCl [Venlafaxine ER] 150 mg PO DAILY 10/29/15 [History] Warfarin [Coumadin] 2.5 mg PO ASDIRECTED 10/29/15 [History] Warfarin [Coumadin] 5 mg PO MOFR 10/29/15 [History] ARIPiprazole [Abilify] 1 mg PO DAILY 05/18/16 [History] Celecoxib [CeleBREX] 200 mg PO DAILY PRN 05/18/16 [History] Venlafaxine HCl [Venlafaxine ER] 37.5 mg PO DAILY 05/18/16 [History] Calcium Carbonate/Vitamin D3 [Calcium 500-Vit D3 200 Tablet] 1 tab PO BID [History] Cholecalciferol (Vitamin D3) [Vitamin D3] 1 tab PO DAILY 05/29/16 [History] Furosemide 20 mg PO DAILY 05/29/16 [History] Potassium Chloride 10 meq PO DAILY 05/29/16 [History] ALPRAZolam [Xanax] 0.25 mg PO ASDIRECTED PRN 03/03/17 [History] Ofloxacin [Floxin 0.3% Otic Soln] 10 drop EARBOTH ASDIRECTED 03/03/17 [History] Isosorbide Dinitrate [Isordil] 1 tab PO TID 09/21/17 [History] Past Medical History HEENT History: Reports: Impaired Vision, Sinusitis Cardiovascular History: Reports: Afib, CAD, Heart Failure, High Cholesterol, Hypertension, [place], Pacemaker, SOB on Exertion Respiratory History: Reports: Other (See Below) Other Respiratory History: "fluid on the lungs" Gastrointestinal History: Reports: GERD Genitourinary History: Reports: Urinary Incontinence [employer] History: Reports: 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, Fibroids, Musculoskeletal History: Reports: Osteoarthritis, Osteoporosis Neurological History: Reports: Headaches, Chronic, Seizure Psychiatric History: Reports: Anxiety, Depression Endocrine/Metabolic History: Reports: Hypothyroidism, Other (See Below) Other Endocrine/Metabolic History: Thyroid disease Hematologic History: Reports: Anticoagulation Therapy - Infectious Disease History Infectious Disease History: Reports: Chicken Pox, Measles, Mumps - Past Surgical History Head Surgeries/Procedures: Reports: None HEENT Surgical History: Reports: Cataract Surgery Cardiovascular Surgical History: Reports: None GI Surgical History: Reports: Appendectomy, Cholecystectomy Female Surgical History: Reports: Hysterectomy, Salpingo-Oophorectomy Neurological Surgical History: Reports: None Musculoskeletal Surgical History: Reports: Knee Replacement, Shoulder Replacement Dermatological Surgical History: Reports: None Social & Family History - Family History Family Medical History: Noncontributory Cardiac: Reports: CAD, Heart Failure, [place] - Tobacco Use Smoking Status *Q: Never Smoker Second Hand Smoke Exposure: No - Caffeine Use Caffeine Use: Reports: Coffee - Recreational Drug Use Recreational Drug Use: No ED ROS GENERAL - Review of Systems Review Of Systems: See Below Constitutional: Reports: No Symptoms HEENT: Reports: No Symptoms Respiratory: Reports: No Symptoms Cardiovascular: Reports: No Symptoms GI/Abdominal: Reports: No Symptoms : Reports: No Symptoms ED EXAM, GENERAL - Physical Exam Exam: See Below Exam Limited By: No Limitations General Appearance: Alert, WD/WN, No Apparent Distress Respiratory/Chest: No Respiratory Distress, Lungs Clear, Normal Breath Sounds, No Accessory Muscle Use, Chest Non-Tender Cardiovascular: Regular Rate, Rhythm, No Murmur Course - Vital Signs Last Recorded V/S: Last Vital Signs Temp 97.3 F 03/01/19 13:26 Pulse 70 03/01/19 14:23 Resp 16 03/01/19 14:23 BP 120/58 L 03/01/19 14:23 Pulse Ox 100 03/01/19 14:23 Departure - Departure Time of Disposition: 14:54 Disposition: Home, Self-Care 01 Condition: Fair Clinical Impression: Normotensive Referrals: Dimitris Camacho MD [Primary Care Provider] - Additional Instructions: Please follow-up with your primary care provider for review of blood per medications call or return to the emergency department worsening of symptoms - Assessment/Plan Plan: Assessment Acuity = acute Site and laterality = normotensive Etiology = unknown etiology possibly related to blood pressure medications Manifestations = none Location of injury = Home Lab values = none Plan I did talk to the patient about blood pressure and blood pressure medications she states she is asymptomatic at this time her blood pressure has been well within normal limits while in the emergency department she is to follow up with her primary care and review her blood pressure medications recently has had some changes. This note was dictated using [employer] voice recognition software please call with any questions on syntax or grammar.
== END 2019-03-01 15:18 | disposition home or self-care (01) ==
LOC: JP.ED 12:44
DX: I11.0 Hypertensive heart disease with heart failure (principal); I50.9 Heart failure, unspecified; I25.10 Atherosclerotic heart disease of native coronary artery without angina pectoris; I25.2 Old myocardial infarction; I48.91 Unspecified atrial fibrillation; E78.00 Pure hypercholesterolemia, unspecified; K21.9 Gastro-esophageal reflux disease without esophagitis; F41.9 Anxiety disorder, unspecified; F32.9 Major depressive disorder, single episode, unspecified; Z79.82 Long term (current) use of aspirin; Z79.899 Other long term (current) drug therapy; Z88.8 Allergy status to other drugs, medicaments and biological substances; Z88.5 Allergy status to narcotic agent
CPT/HCPCS: 99282

== ENCOUNTER 2019-05-13 11:06 | Emergency (ER) | payer MEDICARE ==
[2019-05-13] MEDS ORDERED: Acetaminophen 325 MG Tab PO ONE (11:21)
[2019-05-13 11:38] VITALS: PULSE 70
--- NOTE | 2019-05-13 11:50 | EDM.PDOC ---
ED HPI GENERAL MEDICAL PROBLEM - General Chief Complaint: Chest Pain Stated Complaint: [facility] Time Seen by Provider: 05/13/19 11:14 Source of Information: Reports: Patient, EMS History Limitations: Reports: No Limitations - History of Present Illness INITIAL COMMENTS - FREE TEXT/NARRATIVE: states she just hasn't been feeling well; has "low sodium" and they are looking at her kidney's because "something isn't right". hx of chf. Pacemaker. Had some sharp chest pain, lasted a couple of seconds, then went away; this reoccurred for a couple different times over the next 3 minutes. She does have Nitro however didn't take any; she did NOT have a syncopal episode. is here with her. She recently had dental work done (yesterday, had 4 teeth removed) Is on warfarin. There is some bruising present. Onset: Today Severity: Moderate Improves with: Reports: None Worsens with: Reports: None - Related Data Allergies Allergy/AdvReac Type Severity Reaction Status Date / Time atorvastatin calcium Allergy Swelling Verified 05/13/19 11:18 [From Lipitor] oxycodone Allergy Itching Verified 05/13/19 11:18 duloxetine HCl AdvReac Depression Verified 05/13/19 11:18 [From Cymbalta] hydrocodone AdvReac Hallucinati Verified 05/13/19 11:18 ons lisinopril AdvReac Cough Verified 05/13/19 11:18 Home Meds: Home Meds Aspirin 81 mg PO DAILY 10/29/15 [History] Carbidopa/Levodopa [Carbidopa-Levodopa 25-100] 2 tab PO QID 10/29/15 [History] Carvedilol [Coreg] 12.5 mg PO BID 10/29/15 [History] Citalopram [Citalopram HBr] 20 mg PO DAILY 10/29/15 [History] Levothyroxine 112 mcg PO ACBREAKFAST 10/29/15 [History] Losartan [Cozaar] 25 mg PO DAILY 10/29/15 [History] Nitroglycerin [Nitrostat] 0.4 mg SL ASDIRECTED 10/29/15 [History] OXcarbazepine [Oxcarbazepine] 300 mg PO BID 10/29/15 [History] Omeprazole 20 mg PO DAILY 10/29/15 [History] Simvastatin 40 mg PO BEDTIME 10/29/15 [History] Venlafaxine HCl [Venlafaxine ER] 150 mg PO DAILY 10/29/15 [History] Warfarin [Coumadin] 2.5 mg PO ASDIRECTED 10/29/15 [History] Warfarin [Coumadin] 5 mg PO MOFR 10/29/15 [History] ARIPiprazole [Abilify] 1 mg PO DAILY 05/18/16 [History] Celecoxib [CeleBREX] 200 mg PO DAILY PRN 05/18/16 [History] Venlafaxine HCl [Venlafaxine ER] 37.5 mg PO DAILY 05/18/16 [History] Calcium Carbonate/Vitamin D3 [Calcium 500-Vit D3 200 Tablet] 1 tab PO BID [History] Cholecalciferol (Vitamin D3) [Vitamin D3] 1 tab PO DAILY 05/29/16 [History] Furosemide 20 mg PO DAILY 05/29/16 [History] Potassium Chloride 10 meq PO DAILY 05/29/16 [History] ALPRAZolam [Xanax] 0.25 mg PO ASDIRECTED PRN 03/03/17 [History] Ofloxacin [Floxin 0.3% Otic Soln] 10 drop EARBOTH ASDIRECTED 03/03/17 [History] Isosorbide Dinitrate [Isordil] 1 tab PO TID 09/21/17 [History] Past Medical History HEENT History: Reports: Impaired Vision, Sinusitis Cardiovascular History: Reports: Afib, CAD, Heart Failure, High Cholesterol, Hypertension, [place], Pacemaker, SOB on Exertion Respiratory History: Reports: Other (See Below) Other Respiratory History: "fluid on the lungs" Gastrointestinal History: Reports: GERD Genitourinary History: Reports: Urinary Incontinence TRANSITIONAL CARE LIAISON History: Reports: 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, Fibroids, Musculoskeletal History: Reports: Osteoarthritis, Osteoporosis Neurological History: Reports: Headaches, Chronic, Seizure Psychiatric History: Reports: Anxiety, Depression Endocrine/Metabolic History: Reports: Hypothyroidism, Other (See Below) Other Endocrine/Metabolic History: Thyroid disease Hematologic History: Reports: Anticoagulation Therapy - Infectious Disease History Infectious Disease History: Reports: Chicken Pox, Measles, Mumps - Past Surgical History Head Surgeries/Procedures: Reports: None HEENT Surgical History: Reports: Cataract Surgery Cardiovascular Surgical History: Reports: None GI Surgical History: Reports: Appendectomy, Cholecystectomy Female Surgical History: Reports: Hysterectomy, Salpingo-Oophorectomy Neurological Surgical History: Reports: None Musculoskeletal Surgical History: Reports: Knee Replacement, Shoulder Replacement Dermatological Surgical History: Reports: None Social & Family History - Family History Family Medical History: Noncontributory Cardiac: Reports: CAD, Heart Failure, [place] - Tobacco Use Smoking Status *Q: Never Smoker - Caffeine Use Caffeine Use: Reports: Coffee ED ROS GENERAL - Review of Systems Review Of Systems: See Below Constitutional: Reports: Weakness, Diaphoresis Respiratory: Reports: No Symptoms Cardiovascular: Reports: Chest Pain GI/Abdominal: Reports: No Symptoms : Reports: No Symptoms Musculoskeletal: Reports: No Symptoms Skin: Reports: No Symptoms Neurological: Reports: Other (lightheaded) Hematologic/Lymphatic: Reports: Easy Bleeding, Easy Bruising ED EXAM, GENERAL - Physical Exam Exam: See Below Exam Limited By: No Limitations General Appearance: Alert, WD/WN, No Apparent Distress Eye Exam: Bilateral Eye: EOMI, PERRL Ears: Normal External Exam Nose: Normal Inspection Throat/Mouth: Normal Oropharynx, Other (right lower jaw, bruising present, 4 teeth absent (recent removal at dentist)) Head: Atraumatic, Normocephalic Neck: Normal Inspection, Supple, Non-Tender, Full Range of Motion Respiratory/Chest: No Respiratory Distress, Lungs Clear, Normal Breath Sounds Cardiovascular: Regular Rate, Rhythm Peripheral Pulses: 4+: Posterior Tibial (L), Posterior Tibial (R), Dorsalis Pedis (L), Dorsalis Pedis (R) GI/Abdominal: Normal Bowel Sounds, Soft, Non-Tender Extremities: Normal Inspection, Normal Range of Motion, Non-Tender, No Pedal Edema Neurological: Alert, Oriented, CN II-XII Intact, Normal Cognition, Normal Gait Psychiatric: Normal Affect, Normal Mood Skin Exam: Warm, Dry, Intact, Normal Color EKG INTERPRETATION EKG Date: 05/13/19 Rhythm: A-Fib Course - Vital Signs Last Recorded V/S: Last Vital Signs Temp 96.8 F 05/13/19 11:36 Pulse 70 05/13/19 11:36 Resp 14 05/13/19 11:36 BP 98/48 L 05/13/19 11:36 Pulse Ox 95 05/13/19 11:36 - Orders/Labs/Meds Labs: Laboratory Tests 07/05/13/19 05/13/19 Range/Units 11:30 11:30 11:30 WBC 7.7 (4.5-11.0) K/uL RBC 4.30 (3.30-5.50) M/uL Hgb 13.4 (12.0-15.0) g/dL Hct 40.6 (36.0-48.0) % MCV 94 (80-98) fL MCH 31 (27-31) pg MCHC 33 (32-36) % Plt Count 169 (150-400) K/uL Neut % (Auto) 72 H (36-66) % Lymph % (Auto) 15 L (24-44) % Kendall % (Auto) 13 H (2-6) % Eos % (Auto) 0 L (2-4) % Baso % (Auto) 0 (0-1) % PT 29.3 H (9.5-12.0) sec INR 2.88 H (0.80-1.20) Sodium 134 L (140-148) mmol/L Potassium 4.1 (3.6-5.2) mmol/L Chloride 100 (100-108) mmol/L Carbon Dioxide 28 (21-32) mmol/L Anion Gap 10.1 (5.0-14.0) mmol/L BUN 19 H (7-18) mg/dL Creatinine 1.1 H (0.6-1.0) mg/dL Est Cr Clr Drug Dosing 40.73 mL/min Estimated GFR (MDRD) 48 L (>60) Glucose 106 (74-106) mg/dL Calcium 8.6 (8.5-10.1) mg/dL Total Bilirubin 1.1 H D (0.2-1.0) mg/dL AST 16 (15-37) U/L ALT 11 L (12-78) U/L Alkaline Phosphatase 91 (46-116) U/L Troponin I < 0.017 (0.000-0.056) ng/mL Total Protein 6.3 L (6.4-8.2) g/dL Albumin 2.9 L (3.4-5.0) g/dL Globulin 3.4 (2.3-3.5) g/dL Albumin/Globulin Ratio 0.9 L (1.2-2.2) 05/13/19 Range/Units 14:30 WBC (4.5-11.0) K/uL RBC (3.30-5.50) M/uL Hgb (12.0-15.0) g/dL Hct (36.0-48.0) % MCV (80-98) fL MCH (27-31) pg MCHC (32-36) % Plt Count (150-400) K/uL Neut % (Auto) (36-66) % Lymph % (Auto) (24-44) % Kendall % (Auto) (2-6) % Eos % (Auto) (2-4) % Baso % (Auto) (0-1) % PT (9.5-12.0) sec INR (0.80-1.20) Sodium (140-148) mmol/L Potassium (3.6-5.2) mmol/L Chloride (100-108) mmol/L Carbon Dioxide (21-32) mmol/L Anion Gap (5.0-14.0) mmol/L BUN (7-18) mg/dL Creatinine (0.6-1.0) mg/dL Est Cr Clr Drug Dosing mL/min Estimated GFR (MDRD) (>60) Glucose (74-106) mg/dL Calcium (8.5-10.1) mg/dL Total Bilirubin (0.2-1.0) mg/dL AST (15-37) U/L ALT (12-78) U/L Alkaline Phosphatase (46-116) U/L Troponin I < 0.017 (0.000-0.056) ng/mL Total Protein (6.4-8.2) g/dL Albumin (3.4-5.0) g/dL Globulin (2.3-3.5) g/dL Albumin/Globulin Ratio (1.2-2.2) Meds: Medications Discontinued Medications Generic Name Dose Route Start Last Admin Trade Name Freq PRN Reason Stop Dose Admin Acetaminophen 650 mg 05/13/19 11:21 05/13/19 11:26 Tylenol PO 05/13/19 11:22 650 mg NOW ONE Administration - Re-Assessments/Exams Free Text/Narrative Re-Assessment/Exam: 05/13/19 12:44 Reviewed labs with patient; Blood pressure is coming up; 109 systolic; she is resting comfortably. Will repeat Troponin at 3 hour tatyana and if stable, will be discharged home Free Text/Narrative Re-Assessment/Exam: 05/13/19 13:38 Resting comfortably. Blood pressure up to 114 systolic; no chest pain or sob. Free Text/Narrative Re-Assessment/Exam: 05/13/19 14:49 Awaiting 2nd Troponin; she is resting; no concerns/complaints. 05/13/19 15:32 I got the patient up and walking; tolerated; she does get SOB; advised to bring this up to the inverted block operator this week; she can wear her oxygen more if need be. Departure - Departure Time of Disposition: 15:27 Disposition: Home, Self-Care 01 Condition: Fair Clinical Impression: Weakness Chest pain Qualifiers: Chest pain type: unspecified Qualified Code(s): R07.9 - Chest pain, unspecified - Discharge Information *PRESCRIPTION DRUG MONITORING PROGRAM REVIEWED*: Not Applicable *COPY OF PRESCRIPTION DRUG MONITORING REPORT IN PATIENT CAR: Not Applicable Instructions: Weakness, [id number], Nonspecific Chest Pain Referrals: Dimitris Camacho MD [Primary Care Provider] - Forms: ED Department Discharge Additional Instructions: Please be sure to follow up with your inverted block operator next week; Discuss with them that you have been in the ER with low blood pressure, weakness and atypical chest pain. Be sure to change positions slowly. Watch your sodium intake. If symptoms worsen, return to the ER. Call with questions. - Problem List & Annotations (1) Chest pain SNOMED Code(s): 43547094 Code(s): R07.9 - CHEST PAIN, UNSPECIFIED Status: Acute Priority: Medium Current Visit: Yes Qualifiers: Chest pain type: unspecified Qualified Code(s): R07.9 - Chest pain, unspecified (2) Atypical chest pain SNOMED Code(s): 863128779 Code(s): R07.89 - OTHER CHEST PAIN Status: Acute Priority: Low Current Visit: No - Problem List Review Problem List Initiated/Reviewed/Updated: Yes
--- NOTE | 2019-05-13 12:12 | CRLCR ---
INDICATION: Chest pain. COMPARISON: Chest radiograph 11/30/2018. TECHNIQUE: Portable AP chest. FINDINGS: Mild stable cardiomegaly. Cardiac pacer in place. No pneumothorax or pleural effusion. No evidence of CHF or acute pneumonic infiltrates. IMPRESSION: 1. Mild stable cardiomegaly. 2. Cardiac pacer in place. 3. No acute pathology. Dictated by Brandyn iTnoco MD @ May 13 2019 12:08PM Signed by Dr. Brandyn Tinoco @ May 13 2019 12:09PM
[2019-05-13 15:37] VITALS: BP 116/70
== END 2019-05-13 16:31 | disposition home or self-care (01) ==
LOC: JP.ED 11:06
DX: R07.9 Chest pain, unspecified (principal); R53.1 Weakness; K91.870 Postprocedural hematoma of a digestive system organ or structure following a digestive system procedure; I11.0 Hypertensive heart disease with heart failure; I50.9 Heart failure, unspecified; I25.10 Atherosclerotic heart disease of native coronary artery without angina pectoris; I48.91 Unspecified atrial fibrillation; I25.2 Old myocardial infarction; F41.9 Anxiety disorder, unspecified; F32.9 Major depressive disorder, single episode, unspecified; E03.9 Hypothyroidism, unspecified; K21.9 Gastro-esophageal reflux disease without esophagitis; Z88.8 Allergy status to other drugs, medicaments and biological substances; Z79.899 Other long term (current) drug therapy; Z79.82 Long term (current) use of aspirin; Z79.01 Long term (current) use of anticoagulants; Z90.49 Acquired absence of other specified parts of digestive tract; Z90.710 Acquired absence of both cervix and uterus; Z95.0 Presence of cardiac pacemaker
CPT/HCPCS: 36415; 71045; 80053; 84484; 85025; 85610; 99284; A9270

== ENCOUNTER 2021-12-31 15:20 | Emergency (ER) | payer MEDICARE ==
[2021-12-31 15:36] VITALS: BP 140/69; PULSE 72
== END 2021-12-31 17:50 | disposition home or self-care (01) ==
LOC: JP.ED 15:20
DX: H11.33 Conjunctival hemorrhage, bilateral (principal); I25.10 Atherosclerotic heart disease of native coronary artery without angina pectoris; E78.00 Pure hypercholesterolemia, unspecified; I25.2 Old myocardial infarction; K21.9 Gastro-esophageal reflux disease without esophagitis; E03.9 Hypothyroidism, unspecified; I11.0 Hypertensive heart disease with heart failure; I50.9 Heart failure, unspecified; Z79.82 Long term (current) use of aspirin; Z79.899 Other long term (current) drug therapy; Z88.8 Allergy status to other drugs, medicaments and biological substances
CPT/HCPCS: 36415; 85610; 99282; 99283

== ENCOUNTER 2022-04-15 07:54 | Day surgery (SDC) | payer MEDICARE ==
[2022-04-15] MEDS ORDERED: Lactated Ringers 1,000 ML IV SCH (08:30)
[2022-04-15] MEDS ORDERED: fentaNYL 100 MCG/2 ML SDV ONE (08:37)
[2022-04-15] MEDS ORDERED: Propofol 200 MG/20 ML SDV ONE (08:37)
[2022-04-15 10:55] VITALS: BP 125/72; PULSE 72
== END 2022-04-15 11:00 | disposition home or self-care (01) ==
LOC: JP.SDS 07:54
PROVIDERS: ATTEND Family Medicine
DX: Z12.11 Encounter for screening for malignant neoplasm of colon (principal); I48.91 Unspecified atrial fibrillation; G47.33 Obstructive sleep apnea (adult) (pediatric); I12.9 Hypertensive chronic kidney disease with stage 1 through stage 4 chronic kidney disease, or unspecified chronic kidney disease; N18.9 Chronic kidney disease, unspecified; G20 Parkinson's disease; K21.9 Gastro-esophageal reflux disease without esophagitis; Z88.8 Allergy status to other drugs, medicaments and biological substances; Z88.5 Allergy status to narcotic agent; E66.9 Obesity, unspecified; Z68.36 Body mass index [BMI] 36.0-36.9, adult; Z95.0 Presence of cardiac pacemaker; Z86.010 Personal history of colon polyps
CPT/HCPCS: J2704; J3010; J7120

== ENCOUNTER 2023-02-11 15:01 | Emergency (ER) | payer MEDICARE ==
[2023-02-11] MEDS ORDERED: Sodium Chloride 0.9% 10 ML Syringe FLUSH PRN (15:02)
[2023-02-11] MEDS ORDERED: Aspirin 81 MG Tab.Chew PO ONE (15:18)
[2023-02-11] MEDS: Aspirin 81 MG Tab.Chew PO ONE ×2 (15:19→15:58)
[2023-02-11 15:51] LABS: TROPONIN I HIGH SENSITIVITY 8.6 pg/mL (<=60.3)
[2023-02-11] MEDS ORDERED: Magnesium Oxide 400 MG Tab PO ONE (16:11)
[2023-02-11 17:23] VITALS: BP 148/88; PULSE 70
== END 2023-02-11 19:05 | disposition home or self-care (01) ==
LOC: JP.ED 15:01
DX: I25.119 Atherosclerotic heart disease of native coronary artery with unspecified angina pectoris (principal); I48.20 Chronic atrial fibrillation, unspecified; I11.0 Hypertensive heart disease with heart failure; I50.9 Heart failure, unspecified; E78.00 Pure hypercholesterolemia, unspecified; I25.2 Old myocardial infarction; E03.9 Hypothyroidism, unspecified; Z95.0 Presence of cardiac pacemaker; Z88.5 Allergy status to narcotic agent; Z88.8 Allergy status to other drugs, medicaments and biological substances; Z79.82 Long term (current) use of aspirin; Z79.899 Other long term (current) drug therapy; Z79.01 Long term (current) use of anticoagulants
CPT/HCPCS: 36415; 80048; 83735; 84443; 84484; 85025; 85610; 85730; 93005; 99285; A9270

== ENCOUNTER 2023-03-13 07:10 | Day surgery (SDC) | payer MEDICARE ==
[2023-03-13] MEDS ORDERED: fentaNYL 50 MCG/ML SDV ONE (07:22)
[2023-03-13] MEDS ORDERED: Propofol 200 MG/20 ML SDV ONE (07:22)
[2023-03-13] MEDS ORDERED: Lactated Ringers 1,000 ML IV SCH (07:45)
[2023-03-13 07:47] LABS: INR 1.8; PROTHROMBIN TIME 18.1 sec (9.2-10.6)
[2023-03-13 09:52] VITALS: BP 140/95; PULSE 69
== END 2023-03-13 10:10 | disposition home or self-care (01) ==
LOC: JP.SDS 07:10
PROVIDERS: ATTEND Student in an Organized Health Care Education/Training Program
DX: K29.50 Unspecified chronic gastritis without bleeding (principal); K31.7 Polyp of stomach and duodenum; K21.00 Gastro-esophageal reflux disease with esophagitis, without bleeding; R13.10 Dysphagia, unspecified; G47.33 Obstructive sleep apnea (adult) (pediatric); I48.91 Unspecified atrial fibrillation; I13.0 Hypertensive heart and chronic kidney disease with heart failure and stage 1 through stage 4 chronic kidney disease, or unspecified chronic kidney disease; N18.30 Chronic kidney disease, stage 3 unspecified; I50.9 Heart failure, unspecified; E78.5 Hyperlipidemia, unspecified; I42.9 Cardiomyopathy, unspecified; I25.10 Atherosclerotic heart disease of native coronary artery without angina pectoris; E03.9 Hypothyroidism, unspecified
CPT/HCPCS: 36415; 43239; 85610; 88305; 88312; 88342; 93005; J2704; J3010; J7120

== ENCOUNTER 2023-09-26 10:07 | Emergency (ER) | payer MEDICARE ==
[2023-09-26 10:10] VITALS: BP 128/70; PULSE 70
[2023-09-26 10:59] LABS: BASOPHILS ABSOLUTE AUTO 0.03 K/uL (0.00-0.10); BASOPHILS PERCENT AUTO 0.3 % (0.1-1.3); HEMATOCRIT 39.6 % (34.3-46.0); HEMOGLOBIN 13.3 g/dL (11.2-15.5); IMMATURE GRAN ABSOLUTE AUTO 0.05 K/uL (0.00-0.23); IMMATURE GRAN PERCENT AUTO 0.5 % (0.0-0.7); LYMPHOCYTES ABSOLUTE AUTO 1.48 K/uL (0.8-3.3); LYMPHOCYTES PERCENT AUTO 14.4 % (11.4-47.7); MEAN CORPUSCULAR HEMOGLOBIN 31.2 pg (31.6-35.5); MEAN CORPUSCULAR HGB CONC 33.6 g/dL (31.6-35.5); MONOCYTES ABSOLUTE AUTO 1.18 K/uL (0.20-0.90); MONOCYTES PERCENT AUTO 11.5 % (3.3-12.6); NEUTROPHILS ABSOLUTE AUTO 7.54 K/uL (1.0-7.6); NEUTROPHILS PERCENT AUTO 73.3 % (40.0-78.1); PLATELET COUNT,PLT 169 K/uL (130-375); RED BLOOD CELL COUNT 4.26 M/uL (3.77-5.24); WHITE BLOOD CELL COUNT,WBC 10.3 K/uL (3.2-11.0)
[2023-09-26 11:28] LABS: CALCIUM 8.5 mg/dL (8.5-10.1); CREATININE 1.2 mg/dL (0.6-1.0); EST CRCL DRUG DOSING (CG) 34.42 mL/min; POTASSIUM,K 4.1 mmol/L (3.6-5.2)
[2023-09-26 11:29] LABS: ANION GAP 11.1 mmol/L (5.0-14.0)
== END 2023-09-26 13:26 | disposition home or self-care (01) ==
LOC: JP.ED 10:07
DX: R51.9 Headache, unspecified (principal); I11.0 Hypertensive heart disease with heart failure; E78.00 Pure hypercholesterolemia, unspecified; I50.9 Heart failure, unspecified; I25.10 Atherosclerotic heart disease of native coronary artery without angina pectoris; K21.9 Gastro-esophageal reflux disease without esophagitis; E03.9 Hypothyroidism, unspecified; Z79.01 Long term (current) use of anticoagulants; Z79.82 Long term (current) use of aspirin; E66.9 Obesity, unspecified; W01.0XXA Fall on same level from slipping, tripping and stumbling without subsequent striking against object, initial encounter; Z68.34 Body mass index [BMI] 34.0-34.9, adult; M19.90 Unspecified osteoarthritis, unspecified site; Z79.899 Other long term (current) drug therapy; Z90.49 Acquired absence of other specified parts of digestive tract; Z90.710 Acquired absence of both cervix and uterus
CPT/HCPCS: 36415; 70450; 80048; 85025; 99285

== ENCOUNTER 2024-04-18 21:57 | Emergency (ER) | payer MEDICARE ==
[2024-04-18 22:14] VITALS: BP 136/71; PULSE 67
[2024-04-18 23:14] LABS: BASOPHILS ABSOLUTE AUTO 0.04 K/uL (0.00-0.10); BASOPHILS PERCENT AUTO 0.4 % (0.1-1.3); HEMATOCRIT 34.9 % (34.3-46.0); HEMOGLOBIN 11.9 g/dL (11.2-15.5); IMMATURE GRAN ABSOLUTE AUTO 0.03 K/uL (0.00-0.23); IMMATURE GRAN PERCENT AUTO 0.3 % (0.0-0.7); LYMPHOCYTES ABSOLUTE AUTO 1.53 K/uL (0.8-3.3); LYMPHOCYTES PERCENT AUTO 16.2 % (11.4-47.7); MEAN CORPUSCULAR HEMOGLOBIN 30.9 pg (31.6-35.5); MEAN CORPUSCULAR HGB CONC 34.1 g/dL (31.6-35.5); MEAN CORPUSCULAR VOLUME 90.6 fL (81.4-99.0); MONOCYTES ABSOLUTE AUTO 0.71 K/uL (0.20-0.90); MONOCYTES PERCENT AUTO 7.5 % (3.3-12.6); NEUTROPHILS ABSOLUTE AUTO 7.13 K/uL (1.0-7.6); NEUTROPHILS PERCENT AUTO 75.6 % (40.0-78.1); PLATELET COUNT,PLT 172 K/uL (130-375); RED BLOOD CELL COUNT 3.85 M/uL (3.77-5.24); WHITE BLOOD CELL COUNT,WBC 9.4 K/uL (3.2-11.0)
[2024-04-18 23:46] LABS: A/G RATIO 0.7 (1.2-2.2); ALANINE AMINOTRANSFERASE,ALT 9 U/L (12-78); ALBUMIN 2.8 g/dL (3.4-5.0); ALKALINE PHOSPHATASE 89 U/L (46-116); ANION GAP 11.9 mmol/L (5.0-14.0); ASPARTATE AMNIOTRANSFERASE,AST 19 U/L (15-37); BILIRUBIN TOTAL 0.7 mg/dL (0.2-1.0); BLOOD UREA NITROGEN,BUN 16 mg/dL (7-18); CALCIUM 9.4 mg/dL (8.5-10.1); CARBON DIOXIDE,CO2 26 mmol/L (21-32); CHLORIDE,CL 101 mmol/L (100-108); CREATININE 1.2 mg/dL (0.6-1.0); EST CRCL DRUG DOSING (CG) 34.42 mL/min; ESTIMATED GFR 45 mL/min (>60); GLUCOSE RANDOM 124 mg/dL (74-106); POTASSIUM,K 3.9 mmol/L (3.6-5.2); PROTEIN TOTAL,TP 6.8 g/dL (6.4-8.2); SODIUM,NA 135 mmol/L (140-148); TROPONIN I HIGH SENSITIVITY 8.1 pg/mL (<=60.3)
[2024-04-19] MEDS: Sodium Chloride 0.9% 1,000 ML IV SCH (02:15)
[2024-04-19] MEDS: Iopamidol 755 Mg/ML 100 ML Bottle IV STA (02:40)
[2024-04-19] MEDS: Sodium Chloride 0.9% 100 ML IV STA (02:40)
== END 2024-04-19 06:00 | disposition home or self-care (01) ==
LOC: JP.ED 21:57
DX: J32.0 Chronic maxillary sinusitis (principal); I10 Essential (primary) hypertension; E78.00 Pure hypercholesterolemia, unspecified; E03.9 Hypothyroidism, unspecified; E66.9 Obesity, unspecified; Z95.0 Presence of cardiac pacemaker; Z79.899 Other long term (current) drug therapy; Z79.82 Long term (current) use of aspirin; Z88.8 Allergy status to other drugs, medicaments and biological substances; Z88.6 Allergy status to analgesic agent; Z79.01 Long term (current) use of anticoagulants; Z68.33 Body mass index [BMI] 33.0-33.9, adult
CPT/HCPCS: 36415; 70450; 70496; 70498; 80053; 84484; 85025; 93005; 93010; 99284; J3490; Q9967

== ENCOUNTER 2024-06-20 15:27 | Emergency (ER) | payer MEDICARE ==
[2024-06-20 15:46] VITALS: BP 126/75; PULSE 78
[2024-06-20 16:20] LABS: BASOPHILS ABSOLUTE AUTO 0.04 K/uL (0.00-0.10); BASOPHILS PERCENT AUTO 0.6 % (0.1-1.3); HEMATOCRIT 34.9 % (34.3-46.0); HEMOGLOBIN 11.9 g/dL (11.2-15.5); IMMATURE GRAN ABSOLUTE AUTO 0.03 K/uL (0.00-0.23); IMMATURE GRAN PERCENT AUTO 0.4 % (0.0-0.7); LYMPHOCYTES ABSOLUTE AUTO 1.65 K/uL (0.8-3.3); LYMPHOCYTES PERCENT AUTO 24.6 % (11.4-47.7); MEAN CORPUSCULAR HEMOGLOBIN 31.3 pg (31.6-35.5); MEAN CORPUSCULAR HGB CONC 34.1 g/dL (31.6-35.5); MEAN CORPUSCULAR VOLUME 91.8 fL (81.4-99.0); MONOCYTES ABSOLUTE AUTO 0.78 K/uL (0.20-0.90); MONOCYTES PERCENT AUTO 11.6 % (3.3-12.6); NEUTROPHILS ABSOLUTE AUTO 4.22 K/uL (1.0-7.6); NEUTROPHILS PERCENT AUTO 62.8 % (40.0-78.1); PLATELET COUNT,PLT 179 K/uL (130-375); WHITE BLOOD CELL COUNT,WBC 6.7 K/uL (3.2-11.0)
[2024-06-20 16:45] LABS: CALCIUM 9.3 mg/dL (8.5-10.1); CREATININE 1.3 mg/dL (0.6-1.0); EST CRCL DRUG DOSING (CG) 31.77 mL/min; POTASSIUM,K 4.1 mmol/L (3.6-5.2); TROPONIN I HIGH SENSITIVITY 5.4 pg/mL (<=60.3)
[2024-06-20 17:11] LABS: ANION GAP 11.1 mmol/L (5.0-14.0)
== END 2024-06-20 17:35 | disposition home or self-care (01) ==
LOC: JP.ED 15:27
DX: R07.89 Other chest pain (principal); I10 Essential (primary) hypertension; E78.00 Pure hypercholesterolemia, unspecified; E66.9 Obesity, unspecified; Z90.49 Acquired absence of other specified parts of digestive tract; Z90.710 Acquired absence of both cervix and uterus; E03.9 Hypothyroidism, unspecified; Z68.32 Body mass index [BMI] 32.0-32.9, adult; Z79.899 Other long term (current) drug therapy; Z79.2 Long term (current) use of antibiotics; Z79.82 Long term (current) use of aspirin; Z88.8 Allergy status to other drugs, medicaments and biological substances; Z88.5 Allergy status to narcotic agent
CPT/HCPCS: 36415; 71045; 71045-26; 80048; 84484; 85025; 93005; 99285